=== PATIENT | male | born 1960 | race Caucasian/White ===

== ENCOUNTER 2017-07-20 17:25 | Emergency (ER) | payer MEDICARE, MEDICAID ==
[~2017-07-20 17:25] MED LIST: Sodium Chloride 0.9% 1,000 ML BAG ONE; Sodium Chloride 0.9% 100 ML BAG ONE
[2017-07-20] MEDS ORDERED: Insulin Regular 300 UNITS/3 ML VIAL ONE (18:00)
[2017-07-20 18:46] LABS: ALT (SGPT) 20 U/L (8-55); AST (SGOT) 21 U/L (5-34); Albumin 3.3 g/dL (3.5-5.0); Alkaline Phosphatase 91 U/L (40-150); Anion Gap 21 mmol/L (10-20); BUN (Urea Nitrogen) 27 mg/dL (8.4-25.7); Bilirubin, Total Less than 0.3 mg/dL (0.2-1.2); Calc. Creatinine Clearance 0 mL/min (70-130); Calcium 8.9 mg/dL (7.8-10.44); Carbon Dioxide 18 mmol/L (22-29); Chloride 103 mmol/L (98-107); Estimated GFR-MDRD Greater than 90; Globulin 4.4 g/dL (2.4-3.5); Glucose 375 mg/dL (70-105); Potassium 5.1 mmol/L (3.5-5.1); Protein, Total 7.7 g/dL (6.0-8.3); Sodium 137 mmol/L (136-145)
[2017-07-20 19:05] LABS: Bilirubin Negative (Negative); Blood, Urine Moderate (Negative); Clarity Cloudy (Clear); Glucose, Urine (Dipstick) >=1000 mg/dL (Negative); Leukocyte Small (Negative); Nitrite Negative (Negative); Protein, Urine (Dipstick) 100 mg/dL (Neg-Trace); Specific Gravity, Urine 1.015 (1.005-1.030); Urobilinogen 0.2 mg/dL (0.2-1.0); pH, Urine 7.5 (5.0-9.0)
[2017-07-20 19:06] LABS: Bacteria/HPF 4+ HPF (None Seen); Crystals/HPF 1+ TRIPLE PHOS HPF (Negative); Squamous Epithelial None Seen HPF (0-3)
[2017-07-20 19:17] LABS: Band 9 % (5-11); Eosinophils 1 % (0-10); MDiff Complete? YES; Mean Corpuscular HGB CONC 31.9 g/dL (32.0-36.0); Mean Corpuscular Hemoglobin 28.5 pg (27.0-31.0); Mean Corpuscular Volume 89.3 fl (80.0-94.0); Mean Platelet Volume 8.3 fL (7.4-10.4); Monocytes 4 % (0-10); Neutrophil 80 % (42-75); PLT Morphology Comment Appears Adequate; Platelet Count 199 thou/uL (130-400); RBC Distribution Width 14.2 % (11.5-14.5); Reactive Lymphocytes 6 % (0-10); Red Blood Cell (RBC) Count 4.57 mill/uL (4.70-6.10)
[2017-07-20] MEDS ORDERED: cefTRIAXone\\ROCEPHIN 2 GM VIAL ONE (21:49)
[2017-07-20] MEDS ORDERED: metroNIDAZOLE 500 MG/100 ML BAG ONE (22:08)
== END 2017-07-20 22:54 | disposition short-term general hospital (02) ==
LOC: MADERS 17:25
DX: A41.9 Sepsis, unspecified organism (principal); E11.65 Type 2 diabetes mellitus with hyperglycemia; L89.124 Pressure ulcer of left upper back, stage 4; L89.324 Pressure ulcer of left buttock, stage 4; L89.312 Pressure ulcer of right buttock, stage 2; N39.0 Urinary tract infection, site not specified; E03.9 Hypothyroidism, unspecified; G82.50 Quadriplegia, unspecified; E11.40 Type 2 diabetes mellitus with diabetic neuropathy, unspecified; E78.5 Hyperlipidemia, unspecified; I10 Essential (primary) hypertension; I42.9 Cardiomyopathy, unspecified; I49.9 Cardiac arrhythmia, unspecified; F31.9 Bipolar disorder, unspecified; F41.9 Anxiety disorder, unspecified; F22 Delusional disorders; E66.01 Morbid (severe) obesity due to excess calories; Z79.84 Long term (current) use of oral hypoglycemic drugs; Z79.899 Other long term (current) drug therapy
CPT/HCPCS: 36415; 36416; 80053; 81003; 81015; 83605; 85025; 87040; 87070; 87077; 87149; 87186; 87205; 93005; 96361; 96365; 96367; 96368; J0696; J1815; J3370; J7050

== ENCOUNTER 2018-06-20 00:04 | Emergency (ER) | payer MEDICARE, OTHER ==
[2018-06-20 01:19] LABS: #Basophils 0.1 thou/uL (0.0-0.2); #Eosinphils 0.3 thou/uL (0.0-0.7); #Lymphocytes 4.5 thou/uL (1.20-3.40); #Monocytes 0.6 thou/uL (0.11-0.59); %Basophils 1.2 % (0.0-1.0); %Eosinophils 2.8 % (0.0-10.0); %Lymphocytes 42.9 % (21.0-51.0); %Monocytes 5.5 % (0.0-10.0); %Neutrophils 47.6 % (42.0-75.0); Hemoglobin 11.7 g/dL (14.0-18.0); Mean Corpuscular HGB CONC 31.9 g/dL (32.0-36.0); Mean Corpuscular Hemoglobin 26.8 pg (27.0-31.0); Mean Platelet Volume 7.9 fL (7.4-10.4); Platelet Count 376 thou/uL (130-400); RBC Distribution Width 15.6 % (11.5-14.5); Red Blood Cell (RBC) Count 4.35 mill/uL (4.70-6.10); White Blood Cell (WBC) Count 10.6 thou/uL (4.8-10.8)
[2018-06-20] MEDS ORDERED: Piperacillin/Tazobactam 4.5 GM VIAL ONE (01:30)
[2018-06-20 01:35] LABS: INR-International Normal Ratio 1.1; Prothrombin Time 14.2 SEC (12.0-14.7)
[2018-06-20 01:36] LABS: PTT 34.5 SEC (22.9-36.1)
[2018-06-20 01:43] LABS: ALT (SGPT) 8 U/L (8-55); AST (SGOT) 11 U/L (5-34); Albumin 3.5 g/dL (3.5-5.0); Alkaline Phosphatase 143 U/L (40-150); Anion Gap 20 mmol/L (10-20); BUN (Urea Nitrogen) 22 mg/dL (8.4-25.7); Bilirubin, Total 0.2 mg/dL (0.2-1.2); Calc. Creatinine Clearance 0 mL/min (70-130); Calcium 9.6 mg/dL (7.8-10.44); Carbon Dioxide 19 mmol/L (22-29); Chloride 103 mmol/L (98-107); Estimated GFR-MDRD Greater than 90; Globulin 5.4 g/dL (2.4-3.5); Glucose 152 mg/dL (70-105); Lipase 65 U/L (8-78); Potassium 4.3 mmol/L (3.5-5.1); Protein, Total 8.9 g/dL (6.0-8.3); Sodium 138 mmol/L (136-145)
[2018-06-20 02:11] LABS: Bilirubin Small (Negative); Blood, Urine Small (Negative); Clarity Turbid (Clear); Glucose, Urine (Dipstick) Negative (Negative); Leukocyte Large (Negative); Nitrite Negative (Negative); Protein, Urine (Dipstick) > or equal to 300 mg/dL (Neg-Trace); Specific Gravity, Urine 1.025 (1.005-1.030); Urobilinogen 0.2 mg/dL (0.2-1.0); pH, Urine 5.5 (5.0-9.0)
[2018-06-20] MEDS ORDERED: Sterile Water 100 ML ONE (02:17)
[2018-06-20 02:23] LABS: Bacteria/HPF 4+ HPF (None Seen); Other Casts/LPF 7-10 MIXED CASTS LPF (0-3 Hyaline); Squamous Epithelial 0-3 HPF (0-3); Transitional Epithelial 0-3 HPF (0-3); Yeast-All Forms Rare HPF (None Seen)
[2018-06-20] MEDS ORDERED: Norepinephrine 4 MG/4 ML VIAL ONE ×2 (02:41→06:41)
[2018-06-20 03:04] LABS: CKMB 0.7 ng/mL (0-6.6); Troponin I 0.071 ng/mL (< 0.028)
[2018-06-20] MEDS ORDERED: Sodium Chloride 0.9% 100 ML BAG ONE (06:41)
[2018-06-20] MEDS ORDERED: Sodium Chloride 0.9% 1,000 ML BAG ONE (06:41)
[2018-06-20] MEDS ORDERED: Sodium Chloride Irrig Solution 250 ML BOT ONE (06:41)
--- NOTE | 2018-06-20 08:23 | RAD ---
CHEST ONE VIEW: HISTORY: Chest pain. COMPARISON: 11/20/2017 FINDINGS: The cardiac silhouette is magnified by projection. The pulmonary vasculature remains at the upper li mits of normal. The mediastinum is midline. No lobar consolidation or evidence of pneumothorax. Po stoperative changes of the cervical spine. IMPRESSION: Chronic diffuse interstitial prominence, stable. POS: [facility]
== END 2018-06-20 03:20 | disposition short-term general hospital (02) ==
LOC: MADERS 00:04
DX: A41.9 Sepsis, unspecified organism (principal); L03.116 Cellulitis of left lower limb; L03.115 Cellulitis of right lower limb; E11.40 Type 2 diabetes mellitus with diabetic neuropathy, unspecified; G62.9 Polyneuropathy, unspecified; E03.9 Hypothyroidism, unspecified; E78.5 Hyperlipidemia, unspecified; E66.9 Obesity, unspecified; F31.9 Bipolar disorder, unspecified; Z79.899 Other long term (current) drug therapy; Z79.891 Long term (current) use of opiate analgesic
CPT/HCPCS: 36415; 36556; 71045; 80053; 81003; 81015; 82550; 82553; 83605; 83690; 84484; 85025; 85610; 85652; 85730; 87040; 87086; 87186; 93005; 94760; 96365; 96367; 96368; J2543; J3370; J7050; J7070

== ENCOUNTER 2018-09-16 09:41 | Emergency (ER) | payer MEDICARE, MEDICAID | END 2018-09-16 12:36 | disposition home or self-care (01) | LOC: MADERS 09:41 | DX: L03.115 Cellulitis of right lower limb (principal); E11.40 Type 2 diabetes mellitus with diabetic neuropathy, unspecified; E03.9 Hypothyroidism, unspecified; E78.5 Hyperlipidemia, unspecified; I10 Essential (primary) hypertension; E66.9 Obesity, unspecified; F41.9 Anxiety disorder, unspecified; F31.9 Bipolar disorder, unspecified | CPT/HCPCS: 99284 ==

== ENCOUNTER 2018-11-19 10:17 | Outpatient (CLI) | payer MEDICARE, MEDICAID ==
--- NOTE | 2018-11-19 12:39 | RAD ---
RADIOGRAPH CHEST 1 VIEW: Supine HISTORY: A 57-year-old male with chest wound. FINDINGS: There is no air space density or pulmonary edema. The lateral costophrenic angles are sharp. Supine positioning makes this study insensitive for pneumothorax detection. IMPRESSION: No acute pulmonary findings. halina [] POS: [facility]
--- NOTE | 2018-11-19 12:42 | RAD ---
THREE VIEWS RIGHT RIBS: Date: 11-19-18 Comparison: None. History: Lower thoracic posterior wound, pain. FINDINGS: Incompletely imaged cervical spine hardware is present. There is degenerative change involving the AC joint and the glenohumeral joint on the right. There is mild nonspecific increased linear density within the right lung, similar when compared to 06-20-18 exam. No displaced rib fracture is seen. IMPRESSION: No acute osseous abnormality. Given patient's history of wound, CT examination is suggested for furth er assessment. POS: [facility]
== END 2018-11-19 10:18 | disposition home or self-care (01) ==
LOC: MADRAD 10:17
PROVIDERS: ATTEND Family Medicine
DX: G82.50 Quadriplegia, unspecified (principal); I73.9 Peripheral vascular disease, unspecified; M79.2 Neuralgia and neuritis, unspecified; S21.101D Unspecified open wound of right front wall of thorax without penetration into thoracic cavity, subsequent encounter; I10 Essential (primary) hypertension
CPT/HCPCS: 71045

== ENCOUNTER 2018-12-04 13:59 | Inpatient (IN) | payer MEDICARE, MEDICAID ==
[2018-12-04] MEDS ORDERED: ALPRAZolam 0.25 MG TAB PO PRN (18:09)
[2018-12-04] MEDS ORDERED: diphenhydrAMINE 25 MG CAP PO PRN (18:09)
[2018-12-04] MEDS ORDERED: Dextrose 50% Abboject 50 ML SYRINGE SLOW IVP PRN (18:20)
[2018-12-04] MEDS ORDERED: Dextrose 5% in Water 1,000 ML IV PRN (18:20)
[2018-12-04] MEDS ORDERED: [UNRECOGNIZED DRUG - OTHER] PO SCH (21:00)
[2018-12-04] MEDS ORDERED: AMINO ACIDS PO SCH (21:00)
[2018-12-04] MEDS ORDERED: PROTEIN HYDROLYS PO SCH (21:00)
[2018-12-04] MEDS ORDERED: Pregabalin 100 MG CAP PO SCH (21:00)
[2018-12-04] MEDS: busPIRone HCl 5 MG TAB PO SCH (21:27)
[2018-12-04] MEDS: Citalopram 20 MG TAB PO SCH (21:28)
[2018-12-04] MEDS: Docusate 100 MG CAP PO SCH (21:28)
[2018-12-04] MEDS: levETIRAcetam 500 MG TAB PO SCH (21:29)
[2018-12-04] MEDS: HumaLOG 300 UNITS/3 ML VIAL SC PRN (21:42)
[2018-12-04] MEDS ORDERED: Pregabalin 50 MG CAP PO SCH (21:45)
[2018-12-04 23:37] LABS: Vancomycin, Trough 27.2 ug/mL
[2018-12-04] MEDS ORDERED: Vancomycin HCl 1 GM in Sodium Chloride 0.9% 250 ML 250 ML IVPB SCH (23:59)
[2018-12-05] MEDS ORDERED: Vancomycin HCl 1 GM in Sodium Chloride 0.9% 250 ML 250 ML IVPB SCH (01:00)
[2018-12-05] MEDS: COLESEVELAM HCL 3.75 GM PO SCH ×3 (02:56→20:38)
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
[2018-12-05 05:01] LABS: #Eosinphils 0.4 thou/uL (0.0-0.7); #Lymphocytes 3.4 thou/uL (1.20-3.40); #Monocytes 0.6 thou/uL (0.11-0.59); #Neutrophils 3.4 thou/uL (1.40-6.50); %Basophils 0.6 % (0.0-1.0); %Eosinophils 4.7 % (0.0-10.0); %Lymphocytes 43.9 % (21.0-51.0); %Neutrophils 42.8 % (42.0-75.0); Hemoglobin 8.2 g/dL (14.0-18.0); Mean Corpuscular HGB CONC 31.8 g/dL (32.0-36.0); Mean Corpuscular Hemoglobin 27.2 pg (27.0-31.0); Mean Corpuscular Volume 85.5 fL (78.0-98.0); Mean Platelet Volume 6.6 fL (7.4-10.4); Platelet Count 376 thou/uL (130-400); RBC Distribution Width 13.7 % (11.5-14.5); Red Blood Cell (RBC) Count 3.02 mill/uL (4.70-6.10); White Blood Cell (WBC) Count 7.8 thou/uL (4.8-10.8)
[2018-12-05] MEDS: Levothyroxine Sodium 75 MCG TAB PO SCH (05:05)
[2018-12-05 05:17] LABS: Anion Gap 12 mmol/L (10-20); BUN (Urea Nitrogen) 9 mg/dL (8.4-25.7); Calc. Creatinine Clearance 203 mL/min (70-130); Calcium 9.1 mg/dL (7.8-10.44); Carbon Dioxide 29 mmol/L (22-29); Chloride 105 mmol/L (98-107); Estimated GFR-MDRD Greater than 90; Glucose 136 mg/dL (70-105); Potassium 4.1 mmol/L (3.5-5.1); Sodium 142 mmol/L (136-145)
[2018-12-05] MEDS: cefTRIAXone\\ROCEPHIN 2 GM VIAL IVPB SCH (08:24)
[2018-12-05] MEDS: Saccharomyces boulardii 250 MG CAP PO SCH (08:30)
[2018-12-05] MEDS: Zinc Sulfate 220 MG CAP PO SCH (08:30)
[2018-12-05] MEDS: Polyethylene Glycol 3350 17 GM Packet PO SCH (08:30)
[2018-12-05] MEDS: Docusate 100 MG CAP PO SCH ×2 (08:30→20:35)
[2018-12-05] MEDS: Enoxaparin Sodium 40 MG/0.4 ML SYRINGE SC SCH (08:30)
[2018-12-05] MEDS: levETIRAcetam 500 MG TAB PO SCH ×2 (08:31→20:33)
[2018-12-05] MEDS: Pregabalin 50 MG CAP PO SCH ×2 (08:31→20:29)
[2018-12-05] MEDS: Amlodipine 5 MG TAB PO SCH (08:31)
[2018-12-05] MEDS: Furosemide 20 MG TAB PO SCH (08:35)
[2018-12-05] MEDS: metFORMIN 500 MG TAB PO SCH ×2 (08:35→17:11)
[2018-12-05] MEDS: Gemfibrozil 600 MG TAB PO SCH ×2 (08:36→17:11)
[2018-12-05] MEDS: busPIRone HCl 5 MG TAB PO SCH ×2 (08:38→20:32)
[2018-12-05] MEDS: Lantus 1000 UNITS/10 ML VIAL SC SCH (08:41)
[2018-12-05] MEDS ORDERED: Sodium Chloride Irrig Solution 250 ML BOT ONE (09:35)
[2018-12-05] MEDS: HumaLOG 300 UNITS/3 ML VIAL SC PRN ×2 (11:57→21:24)
[2018-12-05] MEDS: Vancomycin HCl 750 MG in Sodium Chloride 0.9% 250 ML 250 ML IVPB SCH ×3 (11:57→23:22)
[2018-12-05] MEDS: Citalopram 20 MG TAB PO SCH (20:29)
[2018-12-06] MEDS: Vancomycin HCl 750 MG in Sodium Chloride 0.9% 250 ML 250 ML IVPB SCH ×3 (00:19→12:00)
[2018-12-06] MEDS: Levothyroxine Sodium 75 MCG TAB PO SCH (05:34)
[2018-12-06] MEDS: cefTRIAXone\\ROCEPHIN 2 GM VIAL IVPB SCH (07:44)
[2018-12-06] MEDS: Gemfibrozil 600 MG TAB PO SCH ×2 (07:52→17:18)
[2018-12-06] MEDS: metFORMIN 500 MG TAB PO SCH ×2 (07:52→17:18)
[2018-12-06] MEDS: Enoxaparin Sodium 40 MG/0.4 ML SYRINGE SC SCH (09:36)
[2018-12-06] MEDS: Polyethylene Glycol 3350 17 GM Packet PO SCH (09:36)
[2018-12-06] MEDS: Zinc Sulfate 220 MG CAP PO SCH (09:37)
[2018-12-06] MEDS: busPIRone HCl 5 MG TAB PO SCH ×2 (09:37→21:27)
[2018-12-06] MEDS: levETIRAcetam 500 MG TAB PO SCH ×2 (09:37→21:27)
[2018-12-06] MEDS: Pregabalin 50 MG CAP PO SCH ×2 (09:39→21:22)
[2018-12-06] MEDS: Furosemide 20 MG TAB PO SCH (09:41)
[2018-12-06] MEDS: Lantus 1000 UNITS/10 ML VIAL SC SCH (09:41)
[2018-12-06] MEDS: COLESEVELAM HCL 3.75 GM PO SCH ×2 (09:42→21:28)
[2018-12-06] MEDS: Saccharomyces boulardii 250 MG CAP PO SCH (09:44)
[2018-12-06] MEDS: HumaLOG 300 UNITS/3 ML VIAL SC PRN ×4 (10:07→21:33)
[2018-12-06] MEDS: Docusate 100 MG CAP PO SCH ×2 (10:11→21:26)
[2018-12-06] MEDS: Amlodipine 5 MG TAB PO SCH (10:11)
[2018-12-06] MEDS ORDERED: Lantiseptic Ointment 130 GM JAR TOP PRN (19:41)
[2018-12-06] MEDS: Citalopram 20 MG TAB PO SCH (21:28)
[2018-12-06 23:20] LABS: Vancomycin, Trough 17.7 ug/mL
[2018-12-07] MEDS: Vancomycin HCl 750 MG in Sodium Chloride 0.9% 250 ML 250 ML IVPB SCH ×6 (00:04→23:41)
[2018-12-07] MEDS: Levothyroxine Sodium 75 MCG TAB PO SCH (05:29)
[2018-12-07] MEDS: Pregabalin 50 MG CAP PO SCH ×2 (09:36→20:40)
[2018-12-07] MEDS: cefTRIAXone\\ROCEPHIN 2 GM VIAL IVPB SCH (09:36)
[2018-12-07] MEDS: Polyethylene Glycol 3350 17 GM Packet PO SCH (09:36)
[2018-12-07] MEDS: Zinc Sulfate 220 MG CAP PO SCH (09:37)
[2018-12-07] MEDS: Saccharomyces boulardii 250 MG CAP PO SCH (09:37)
[2018-12-07] MEDS: Furosemide 20 MG TAB PO SCH (09:38)
[2018-12-07] MEDS: metFORMIN 500 MG TAB PO SCH ×2 (09:38→17:45)
[2018-12-07] MEDS: Gemfibrozil 600 MG TAB PO SCH ×2 (09:38→17:45)
[2018-12-07] MEDS: Amlodipine 5 MG TAB PO SCH (09:38)
[2018-12-07] MEDS: Docusate 100 MG CAP PO SCH ×2 (09:38→20:38)
[2018-12-07] MEDS: busPIRone HCl 5 MG TAB PO SCH ×2 (09:40→20:37)
[2018-12-07] MEDS: Enoxaparin Sodium 40 MG/0.4 ML SYRINGE SC SCH (09:41)
[2018-12-07] MEDS: Lantus 1000 UNITS/10 ML VIAL SC SCH (09:41)
[2018-12-07] MEDS: levETIRAcetam 500 MG TAB PO SCH ×2 (09:41→20:38)
[2018-12-07] MEDS: HumaLOG 300 UNITS/3 ML VIAL SC PRN ×4 (09:43→21:38)
[2018-12-07] MEDS: COLESEVELAM HCL 3.75 GM PO SCH ×2 (09:52→20:45)
[2018-12-07] MEDS ORDERED: Sodium Chloride Irrig Solution 250 ML BOT ONE (13:07)
[2018-12-07] MEDS: Citalopram 20 MG TAB PO SCH (20:40)
[2018-12-08] MEDS: traMADol HCl 50 MG TAB PO PRN (03:07)
[2018-12-08] MEDS: Levothyroxine Sodium 75 MCG TAB PO SCH (05:12)
[2018-12-08] MEDS: Gemfibrozil 600 MG TAB PO SCH ×2 (07:23→17:01)
[2018-12-08] MEDS: cefTRIAXone\\ROCEPHIN 2 GM VIAL IVPB SCH (07:23)
[2018-12-08] MEDS: metFORMIN 500 MG TAB PO SCH ×2 (07:23→17:01)
[2018-12-08] MEDS: Enoxaparin Sodium 40 MG/0.4 ML SYRINGE SC SCH (08:09)
[2018-12-08] MEDS: busPIRone HCl 5 MG TAB PO SCH ×2 (08:13→21:34)
[2018-12-08] MEDS: Polyethylene Glycol 3350 17 GM Packet PO SCH (08:13)
[2018-12-08] MEDS: Docusate 100 MG CAP PO SCH ×2 (08:15→21:34)
[2018-12-08] MEDS: Furosemide 20 MG TAB PO SCH (08:15)
[2018-12-08] MEDS: Zinc Sulfate 220 MG CAP PO SCH (08:15)
[2018-12-08] MEDS: levETIRAcetam 500 MG TAB PO SCH ×2 (08:15→21:34)
[2018-12-08] MEDS: Amlodipine 5 MG TAB PO SCH (08:22)
[2018-12-08] MEDS: Saccharomyces boulardii 250 MG CAP PO SCH (08:22)
[2018-12-08] MEDS: Lantus 1000 UNITS/10 ML VIAL SC SCH (08:23)
[2018-12-08] MEDS: COLESEVELAM HCL 3.75 GM PO SCH ×2 (08:27→21:41)
[2018-12-08] MEDS: Pregabalin 50 MG CAP PO SCH ×2 (08:31→21:39)
[2018-12-08] MEDS: HumaLOG 300 UNITS/3 ML VIAL SC PRN ×3 (08:33→21:44)
[2018-12-08 11:19] LABS: Vancomycin, Trough 21.3 ug/mL
[2018-12-08] MEDS: Vancomycin HCl 750 MG in Sodium Chloride 0.9% 250 ML 250 ML IVPB SCH (12:47)
[2018-12-08] MEDS: Vancomycin HCl 500 MG in Sodium Chloride 0.9% 100 ML IVPB SCH (12:48)
[2018-12-08] MEDS: Citalopram 20 MG TAB PO SCH (21:34)
[2018-12-09] MEDS: Vancomycin HCl 500 MG in Sodium Chloride 0.9% 100 ML IVPB SCH ×2 (00:20→11:30)
[2018-12-09] MEDS: Vancomycin HCl 750 MG in Sodium Chloride 0.9% 250 ML 250 ML IVPB SCH ×2 (00:20→11:30)
[2018-12-09 00:47] LABS: Vancomycin, Trough 17.9 ug/mL
[2018-12-09] MEDS: Levothyroxine Sodium 75 MCG TAB PO SCH (05:12)
[2018-12-09] MEDS: cefTRIAXone\\ROCEPHIN 2 GM VIAL IVPB SCH (07:45)
[2018-12-09] MEDS: Pregabalin 50 MG CAP PO SCH ×2 (07:47→22:44)
[2018-12-09] MEDS: Enoxaparin Sodium 40 MG/0.4 ML SYRINGE SC SCH (07:48)
[2018-12-09] MEDS: Polyethylene Glycol 3350 17 GM Packet PO SCH (07:49)
[2018-12-09] MEDS: busPIRone HCl 5 MG TAB PO SCH ×2 (07:50→22:39)
[2018-12-09] MEDS: metFORMIN 500 MG TAB PO SCH ×2 (07:50→17:18)
[2018-12-09] MEDS: Zinc Sulfate 220 MG CAP PO SCH (07:50)
[2018-12-09] MEDS: Docusate 100 MG CAP PO SCH ×2 (07:51→22:40)
[2018-12-09] MEDS: Gemfibrozil 600 MG TAB PO SCH ×2 (07:51→17:18)
[2018-12-09] MEDS: levETIRAcetam 500 MG TAB PO SCH ×2 (07:51→22:40)
[2018-12-09] MEDS: Saccharomyces boulardii 250 MG CAP PO SCH (07:51)
[2018-12-09] MEDS: Amlodipine 5 MG TAB PO SCH (07:52)
[2018-12-09] MEDS: Lantus 1000 UNITS/10 ML VIAL SC SCH (07:52)
[2018-12-09] MEDS: Furosemide 20 MG TAB PO SCH (07:52)
[2018-12-09] MEDS: COLESEVELAM HCL 3.75 GM PO SCH ×2 (07:53→22:41)
[2018-12-09] MEDS: HumaLOG 300 UNITS/3 ML VIAL SC PRN ×4 (07:56→22:44)
[2018-12-09] MEDS: Citalopram 20 MG TAB PO SCH (22:39)
[2018-12-10] MEDS ORDERED: Activase 2 MG VIAL CATH SCH (01:00)
[2018-12-10] MEDS ORDERED: Sterile Water 10 ML VIAL IVP SCH (01:00)
[2018-12-10] MEDS: Vancomycin HCl 750 MG in Sodium Chloride 0.9% 250 ML 250 ML IVPB SCH ×3 (02:17→14:34)
[2018-12-10] MEDS: Vancomycin HCl 500 MG in Sodium Chloride 0.9% 100 ML IVPB SCH ×3 (02:18→14:34)
[2018-12-10] MEDS: Levothyroxine Sodium 75 MCG TAB PO SCH (05:48)
[2018-12-10] MEDS: Polyethylene Glycol 3350 17 GM Packet PO SCH (08:54)
[2018-12-10] MEDS: COLESEVELAM HCL 3.75 GM PO SCH ×2 (08:55→22:09)
[2018-12-10] MEDS: Enoxaparin Sodium 40 MG/0.4 ML SYRINGE SC SCH (08:55)
[2018-12-10] MEDS: metFORMIN 500 MG TAB PO SCH ×2 (08:55→16:57)
[2018-12-10] MEDS: Amlodipine 5 MG TAB PO SCH (08:57)
[2018-12-10] MEDS: Gemfibrozil 600 MG TAB PO SCH ×2 (08:57→16:57)
[2018-12-10] MEDS: Zinc Sulfate 220 MG CAP PO SCH (08:57)
[2018-12-10] MEDS: Furosemide 20 MG TAB PO SCH (08:57)
[2018-12-10] MEDS: busPIRone HCl 5 MG TAB PO SCH ×2 (08:57→21:49)
[2018-12-10] MEDS: levETIRAcetam 500 MG TAB PO SCH ×2 (08:58→21:49)
[2018-12-10] MEDS: Lantus 1000 UNITS/10 ML VIAL SC SCH (08:58)
[2018-12-10] MEDS: Saccharomyces boulardii 250 MG CAP PO SCH (08:58)
[2018-12-10] MEDS: Pregabalin 50 MG CAP PO SCH (09:01)
[2018-12-10] MEDS: HumaLOG 300 UNITS/3 ML VIAL SC PRN ×3 (09:01→16:58)
[2018-12-10] MEDS: cefTRIAXone\\ROCEPHIN 2 GM VIAL IVPB SCH (09:02)
[2018-12-10] MEDS: Docusate 100 MG CAP PO SCH ×2 (09:03→21:48)
[2018-12-10 13:34] LABS: Vancomycin, Trough 18.6 ug/mL
[2018-12-10] MEDS: Pregabalin 75 MG CAP PO SCH (21:46)
[2018-12-10] MEDS: Citalopram 20 MG TAB PO SCH (21:49)
[2018-12-10] MEDS: traMADol HCl 50 MG TAB PO PRN (22:00)
[2018-12-11] MEDS: Vancomycin HCl 750 MG in Sodium Chloride 0.9% 250 ML 250 ML IVPB SCH ×2 (02:07→14:18)
[2018-12-11] MEDS: Vancomycin HCl 500 MG in Sodium Chloride 0.9% 100 ML IVPB SCH ×2 (02:09→14:18)
[2018-12-11] MEDS: Levothyroxine Sodium 75 MCG TAB PO SCH (05:12)
[2018-12-11] MEDS: Polyethylene Glycol 3350 17 GM Packet PO SCH (08:45)
[2018-12-11] MEDS: COLESEVELAM HCL 3.75 GM PO SCH ×2 (08:45→20:49)
[2018-12-11] MEDS: busPIRone HCl 5 MG TAB PO SCH ×2 (08:53→20:46)
[2018-12-11] MEDS: Pregabalin 75 MG CAP PO SCH ×2 (08:53→20:43)
[2018-12-11] MEDS: Zinc Sulfate 220 MG CAP PO SCH (08:53)
[2018-12-11] MEDS: levETIRAcetam 500 MG TAB PO SCH ×2 (08:54→20:42)
[2018-12-11] MEDS: Docusate 100 MG CAP PO SCH ×2 (08:54→20:49)
[2018-12-11] MEDS: Furosemide 20 MG TAB PO SCH (08:54)
[2018-12-11] MEDS: Saccharomyces boulardii 250 MG CAP PO SCH (08:54)
[2018-12-11] MEDS: metFORMIN 500 MG TAB PO SCH ×2 (08:54→16:36)
[2018-12-11] MEDS: Gemfibrozil 600 MG TAB PO SCH ×2 (08:54→16:36)
[2018-12-11] MEDS: Lantus 1000 UNITS/10 ML VIAL SC SCH (08:55)
[2018-12-11] MEDS: cefTRIAXone\\ROCEPHIN 2 GM VIAL IVPB SCH (08:55)
[2018-12-11] MEDS: Amlodipine 5 MG TAB PO SCH (08:55)
[2018-12-11] MEDS: Enoxaparin Sodium 40 MG/0.4 ML SYRINGE SC SCH (09:05)
[2018-12-11] MEDS: HumaLOG 300 UNITS/3 ML VIAL SC PRN ×3 (12:05→22:25)
[2018-12-11] MEDS: Citalopram 20 MG TAB PO SCH (20:46)
[2018-12-12] MEDS: Vancomycin HCl 750 MG in Sodium Chloride 0.9% 250 ML 250 ML IVPB SCH ×2 (02:14→16:12)
[2018-12-12] MEDS: Vancomycin HCl 500 MG in Sodium Chloride 0.9% 100 ML IVPB SCH ×2 (02:15→16:11)
[2018-12-12] MEDS: Levothyroxine Sodium 75 MCG TAB PO SCH (05:42)
[2018-12-12] MEDS: cefTRIAXone\\ROCEPHIN 2 GM VIAL IVPB SCH (08:07)
[2018-12-12] MEDS: Gemfibrozil 600 MG TAB PO SCH ×2 (08:12→17:08)
[2018-12-12] MEDS: Amlodipine 5 MG TAB PO SCH (08:12)
[2018-12-12] MEDS: metFORMIN 500 MG TAB PO SCH ×2 (08:12→17:09)
[2018-12-12] MEDS: Docusate 100 MG CAP PO SCH ×2 (08:13→21:20)
[2018-12-12] MEDS: busPIRone HCl 5 MG TAB PO SCH ×2 (08:13→21:21)
[2018-12-12] MEDS: Enoxaparin Sodium 40 MG/0.4 ML SYRINGE SC SCH (08:14)
[2018-12-12] MEDS: Furosemide 20 MG TAB PO SCH (08:14)
[2018-12-12] MEDS: Lantus 1000 UNITS/10 ML VIAL SC SCH (08:17)
[2018-12-12] MEDS: levETIRAcetam 500 MG TAB PO SCH ×2 (08:18→21:15)
[2018-12-12] MEDS: COLESEVELAM HCL 3.75 GM PO SCH ×2 (08:19→21:23)
[2018-12-12] MEDS: Polyethylene Glycol 3350 17 GM Packet PO SCH (08:19)
[2018-12-12] MEDS: Pregabalin 75 MG CAP PO SCH ×2 (08:20→21:12)
[2018-12-12] MEDS: Saccharomyces boulardii 250 MG CAP PO SCH (08:22)
[2018-12-12] MEDS: Zinc Sulfate 220 MG CAP PO SCH (08:23)
[2018-12-12] MEDS: HumaLOG 300 UNITS/3 ML VIAL SC PRN ×3 (08:23→22:27)
[2018-12-12 15:02] LABS: Vancomycin, Trough 15.1 ug/mL
[2018-12-12] MEDS: Citalopram 20 MG TAB PO SCH (21:20)
[2018-12-13] MEDS: Vancomycin HCl 750 MG in Sodium Chloride 0.9% 250 ML 250 ML IVPB SCH ×2 (02:55→14:34)
[2018-12-13] MEDS: Vancomycin HCl 500 MG in Sodium Chloride 0.9% 100 ML IVPB SCH ×2 (02:55→14:35)
[2018-12-13] MEDS: Levothyroxine Sodium 75 MCG TAB PO SCH (04:27)
[2018-12-13] MEDS: traMADol HCl 50 MG TAB PO PRN (04:28)
[2018-12-13 07:12] LABS: #Basophils 0.1 thou/uL (0.0-0.2); #Eosinphils 0.4 thou/uL (0.0-0.7); #Lymphocytes 3.4 thou/uL (1.20-3.40); #Monocytes 0.7 thou/uL (0.11-0.59); #Neutrophils 2.4 thou/uL (1.40-6.50); %Basophils 0.9 % (0.0-1.0); %Eosinophils 5.4 % (0.0-10.0); %Lymphocytes 49.3 % (21.0-51.0); %Monocytes 9.5 % (0.0-10.0); %Neutrophils 34.9 % (42.0-75.0); Hemoglobin 9.1 g/dL (14.0-18.0); Mean Corpuscular HGB CONC 30.1 g/dL (32.0-36.0); Mean Corpuscular Hemoglobin 26.2 pg (27.0-31.0); Mean Corpuscular Volume 87.2 fL (78.0-98.0); Mean Platelet Volume 6.6 fL (7.4-10.4); Platelet Count 335 thou/uL (130-400); RBC Distribution Width 15.1 % (11.5-14.5); Red Blood Cell (RBC) Count 3.46 mill/uL (4.70-6.10); White Blood Cell (WBC) Count 6.9 thou/uL (4.8-10.8)
[2018-12-13 07:23] LABS: Anion Gap 17 mmol/L (10-20); BUN (Urea Nitrogen) 19 mg/dL (8.4-25.7); Calc. Creatinine Clearance 184 mL/min (70-130); Calcium 9.3 mg/dL (7.8-10.44); Carbon Dioxide 24 mmol/L (22-29); Chloride 105 mmol/L (98-107); Estimated GFR-MDRD Greater than 90; Glucose 158 mg/dL (70-105); Potassium 4.5 mmol/L (3.5-5.1); Sodium 141 mmol/L (136-145)
[2018-12-13] MEDS: Lantus 1000 UNITS/10 ML VIAL SC SCH (08:10)
[2018-12-13] MEDS: Enoxaparin Sodium 40 MG/0.4 ML SYRINGE SC SCH (08:11)
[2018-12-13] MEDS: Polyethylene Glycol 3350 17 GM Packet PO SCH (08:11)
[2018-12-13] MEDS: cefTRIAXone\\ROCEPHIN 2 GM VIAL IVPB SCH (08:12)
[2018-12-13] MEDS: Zinc Sulfate 220 MG CAP PO SCH (08:13)
[2018-12-13] MEDS: metFORMIN 500 MG TAB PO SCH ×2 (08:13→17:19)
[2018-12-13] MEDS: levETIRAcetam 500 MG TAB PO SCH ×2 (08:14→20:11)
[2018-12-13] MEDS: Gemfibrozil 600 MG TAB PO SCH ×2 (08:16→17:00)
[2018-12-13] MEDS: Pregabalin 75 MG CAP PO SCH ×2 (08:16→20:07)
[2018-12-13] MEDS: Docusate 100 MG CAP PO SCH ×2 (08:16→20:12)
[2018-12-13] MEDS: Furosemide 20 MG TAB PO SCH (08:16)
[2018-12-13] MEDS: Amlodipine 5 MG TAB PO SCH (08:16)
[2018-12-13] MEDS: COLESEVELAM HCL 3.75 GM PO SCH ×2 (08:18→20:13)
[2018-12-13] MEDS: busPIRone HCl 5 MG TAB PO SCH ×2 (08:23→20:11)
[2018-12-13] MEDS: Saccharomyces boulardii 250 MG CAP PO SCH (08:24)
[2018-12-13] MEDS: HumaLOG 300 UNITS/3 ML VIAL SC PRN ×3 (12:24→23:36)
[2018-12-13] MEDS: Citalopram 20 MG TAB PO SCH (20:11)
[2018-12-14 01:19] LABS: Vancomycin, Trough 19.8 ug/mL
[2018-12-14] MEDS: Vancomycin HCl 500 MG in Sodium Chloride 0.9% 100 ML IVPB SCH ×2 (02:36→13:31)
[2018-12-14] MEDS: Vancomycin HCl 750 MG in Sodium Chloride 0.9% 250 ML 250 ML IVPB SCH ×2 (02:37→13:31)
[2018-12-14] MEDS: Levothyroxine Sodium 75 MCG TAB PO SCH (05:16)
[2018-12-14] MEDS: cefTRIAXone\\ROCEPHIN 2 GM VIAL IVPB SCH (07:50)
[2018-12-14] MEDS: Polyethylene Glycol 3350 17 GM Packet PO SCH (08:08)
[2018-12-14] MEDS: levETIRAcetam 500 MG TAB PO SCH ×2 (08:08→20:27)
[2018-12-14] MEDS: Zinc Sulfate 220 MG CAP PO SCH (08:09)
[2018-12-14] MEDS: metFORMIN 500 MG TAB PO SCH ×2 (08:09→16:56)
[2018-12-14] MEDS: Docusate 100 MG CAP PO SCH ×2 (08:09→20:27)
[2018-12-14] MEDS: Pregabalin 75 MG CAP PO SCH ×2 (08:10→20:28)
[2018-12-14] MEDS: busPIRone HCl 5 MG TAB PO SCH ×2 (08:10→20:26)
[2018-12-14] MEDS: Amlodipine 5 MG TAB PO SCH (08:11)
[2018-12-14] MEDS: Saccharomyces boulardii 250 MG CAP PO SCH (08:11)
[2018-12-14] MEDS: Furosemide 20 MG TAB PO SCH (08:12)
[2018-12-14] MEDS: Enoxaparin Sodium 40 MG/0.4 ML SYRINGE SC SCH (08:12)
[2018-12-14] MEDS: Gemfibrozil 600 MG TAB PO SCH ×2 (08:12→16:56)
[2018-12-14] MEDS: HumaLOG 300 UNITS/3 ML VIAL SC PRN ×3 (08:13→16:56)
[2018-12-14] MEDS: Lantus 1000 UNITS/10 ML VIAL SC SCH (08:13)
[2018-12-14] MEDS: COLESEVELAM HCL 3.75 GM PO SCH ×2 (10:48→20:36)
[2018-12-14] MEDS: Citalopram 20 MG TAB PO SCH (20:26)
[2018-12-15] MEDS ORDERED: Vancomycin HCl 750 MG VIAL ONE ×2 (01:51→01:57)
[2018-12-15] MEDS: Vancomycin HCl 500 MG in Sodium Chloride 0.9% 100 ML IVPB SCH ×2 (02:15→13:18)
[2018-12-15] MEDS: Vancomycin HCl 750 MG in Sodium Chloride 0.9% 250 ML 250 ML IVPB SCH ×2 (02:17→13:18)
[2018-12-15] MEDS: Levothyroxine Sodium 75 MCG TAB PO SCH (05:18)
[2018-12-15] MEDS: cefTRIAXone\\ROCEPHIN 2 GM VIAL IVPB SCH (07:52)
[2018-12-15] MEDS: HumaLOG 300 UNITS/3 ML VIAL SC PRN ×4 (07:52→21:59)
[2018-12-15] MEDS: Lantus 1000 UNITS/10 ML VIAL SC SCH (07:52)
[2018-12-15] MEDS: Docusate 100 MG CAP PO SCH ×2 (07:53→20:54)
[2018-12-15] MEDS: Furosemide 20 MG TAB PO SCH (07:53)
[2018-12-15] MEDS: Polyethylene Glycol 3350 17 GM Packet PO SCH (07:53)
[2018-12-15] MEDS: metFORMIN 500 MG TAB PO SCH ×2 (07:53→17:02)
[2018-12-15] MEDS: levETIRAcetam 500 MG TAB PO SCH ×2 (07:53→20:54)
[2018-12-15] MEDS: Enoxaparin Sodium 40 MG/0.4 ML SYRINGE SC SCH (07:54)
[2018-12-15] MEDS: Pregabalin 75 MG CAP PO SCH ×2 (07:54→20:55)
[2018-12-15] MEDS: Zinc Sulfate 220 MG CAP PO SCH (07:55)
[2018-12-15] MEDS: busPIRone HCl 5 MG TAB PO SCH ×2 (07:55→20:53)
[2018-12-15] MEDS: COLESEVELAM HCL 3.75 GM PO SCH ×2 (07:58→20:58)
[2018-12-15] MEDS: Amlodipine 5 MG TAB PO SCH (07:58)
[2018-12-15] MEDS: Gemfibrozil 600 MG TAB PO SCH ×2 (07:58→17:03)
[2018-12-15] MEDS: Saccharomyces boulardii 250 MG CAP PO SCH (07:58)
[2018-12-15] MEDS: Citalopram 20 MG TAB PO SCH (20:53)
[2018-12-16] MEDS: Vancomycin HCl 750 MG in Sodium Chloride 0.9% 250 ML 250 ML IVPB SCH ×2 (02:04→14:03)
[2018-12-16] MEDS: Vancomycin HCl 500 MG in Sodium Chloride 0.9% 100 ML IVPB SCH ×2 (02:07→15:20)
[2018-12-16] MEDS: Levothyroxine Sodium 75 MCG TAB PO SCH (05:34)
[2018-12-16] MEDS: cefTRIAXone\\ROCEPHIN 2 GM VIAL IVPB SCH (08:07)
[2018-12-16] MEDS: Gemfibrozil 600 MG TAB PO SCH ×2 (08:07→16:59)
[2018-12-16] MEDS: Amlodipine 5 MG TAB PO SCH (08:08)
[2018-12-16] MEDS: metFORMIN 500 MG TAB PO SCH ×2 (08:08→16:58)
[2018-12-16] MEDS: busPIRone HCl 5 MG TAB PO SCH ×2 (08:09→20:46)
[2018-12-16] MEDS: Docusate 100 MG CAP PO SCH ×2 (08:10→20:50)
[2018-12-16] MEDS: Enoxaparin Sodium 40 MG/0.4 ML SYRINGE SC SCH (08:10)
[2018-12-16] MEDS: Furosemide 20 MG TAB PO SCH (08:11)
[2018-12-16] MEDS: Lantus 1000 UNITS/10 ML VIAL SC SCH (08:13)
[2018-12-16] MEDS: levETIRAcetam 500 MG TAB PO SCH ×2 (08:14→20:51)
[2018-12-16] MEDS: Polyethylene Glycol 3350 17 GM Packet PO SCH (08:17)
[2018-12-16] MEDS: COLESEVELAM HCL 3.75 GM PO SCH ×2 (08:17→22:34)
[2018-12-16] MEDS: Pregabalin 75 MG CAP PO SCH ×2 (08:17→21:01)
[2018-12-16] MEDS: Saccharomyces boulardii 250 MG CAP PO SCH (08:20)
[2018-12-16] MEDS: Zinc Sulfate 220 MG CAP PO SCH (09:41)
[2018-12-16] MEDS: HumaLOG 300 UNITS/3 ML VIAL SC PRN ×3 (11:58→22:36)
[2018-12-16] MEDS: traMADol HCl 50 MG TAB PO PRN (19:37)
[2018-12-16] MEDS: Citalopram 20 MG TAB PO SCH (20:50)
[2018-12-17] MEDS: Vancomycin HCl 750 MG in Sodium Chloride 0.9% 250 ML 250 ML IVPB SCH ×2 (01:24→13:35)
[2018-12-17] MEDS: Vancomycin HCl 500 MG in Sodium Chloride 0.9% 100 ML IVPB SCH ×2 (01:25→14:16)
[2018-12-17] MEDS: Levothyroxine Sodium 75 MCG TAB PO SCH (06:10)
[2018-12-17] MEDS: cefTRIAXone\\ROCEPHIN 2 GM VIAL IVPB SCH (07:12)
[2018-12-17] MEDS: Gemfibrozil 600 MG TAB PO SCH ×2 (07:12→16:39)
[2018-12-17] MEDS: metFORMIN 500 MG TAB PO SCH ×2 (07:12→16:39)
[2018-12-17] MEDS: Pregabalin 75 MG CAP PO SCH ×2 (09:17→21:47)
[2018-12-17] MEDS: Enoxaparin Sodium 40 MG/0.4 ML SYRINGE SC SCH (09:18)
[2018-12-17] MEDS: COLESEVELAM HCL 3.75 GM PO SCH ×2 (09:18→21:45)
[2018-12-17] MEDS: Polyethylene Glycol 3350 17 GM Packet PO SCH (09:18)
[2018-12-17] MEDS: busPIRone HCl 5 MG TAB PO SCH ×2 (09:19→21:43)
[2018-12-17] MEDS: Saccharomyces boulardii 250 MG CAP PO SCH (09:19)
[2018-12-17] MEDS: Zinc Sulfate 220 MG CAP PO SCH (09:19)
[2018-12-17] MEDS: Docusate 100 MG CAP PO SCH ×2 (09:21→21:44)
[2018-12-17] MEDS: Furosemide 20 MG TAB PO SCH (09:21)
[2018-12-17] MEDS: Amlodipine 5 MG TAB PO SCH (09:21)
[2018-12-17] MEDS: levETIRAcetam 500 MG TAB PO SCH ×2 (09:21→21:44)
[2018-12-17] MEDS: Lantus 1000 UNITS/10 ML VIAL SC SCH (09:22)
[2018-12-17] MEDS: HumaLOG 300 UNITS/3 ML VIAL SC PRN ×3 (09:24→21:53)
[2018-12-17] MEDS: Citalopram 20 MG TAB PO SCH (21:43)
[2018-12-18] MEDS: Vancomycin HCl 750 MG in Sodium Chloride 0.9% 250 ML 250 ML IVPB SCH ×2 (02:35→13:31)
[2018-12-18] MEDS: Vancomycin HCl 500 MG in Sodium Chloride 0.9% 100 ML IVPB SCH ×2 (02:37→14:21)
[2018-12-18] MEDS: Levothyroxine Sodium 75 MCG TAB PO SCH (05:04)
[2018-12-18] MEDS: cefTRIAXone\\ROCEPHIN 2 GM VIAL IVPB SCH (07:49)
[2018-12-18] MEDS: metFORMIN 500 MG TAB PO SCH ×2 (07:56→16:42)
[2018-12-18] MEDS: Gemfibrozil 600 MG TAB PO SCH ×2 (07:56→16:42)
[2018-12-18] MEDS: Enoxaparin Sodium 40 MG/0.4 ML SYRINGE SC SCH (09:01)
[2018-12-18] MEDS: levETIRAcetam 500 MG TAB PO SCH ×2 (09:01→20:47)
[2018-12-18] MEDS: busPIRone HCl 5 MG TAB PO SCH ×2 (09:02→20:46)
[2018-12-18] MEDS: Saccharomyces boulardii 250 MG CAP PO SCH (09:02)
[2018-12-18] MEDS: Amlodipine 5 MG TAB PO SCH (09:03)
[2018-12-18] MEDS: Furosemide 20 MG TAB PO SCH (09:03)
[2018-12-18] MEDS: Lantus 1000 UNITS/10 ML VIAL SC SCH (09:03)
[2018-12-18] MEDS: Docusate 100 MG CAP PO SCH ×2 (09:03→20:47)
[2018-12-18] MEDS: Zinc Sulfate 220 MG CAP PO SCH (09:03)
[2018-12-18] MEDS: HumaLOG 300 UNITS/3 ML VIAL SC PRN ×3 (09:04→16:42)
[2018-12-18] MEDS: Polyethylene Glycol 3350 17 GM Packet PO SCH (09:08)
[2018-12-18] MEDS: COLESEVELAM HCL 3.75 GM PO SCH ×2 (09:08→20:48)
[2018-12-18] MEDS: Pregabalin 75 MG CAP PO SCH ×2 (09:09→20:48)
[2018-12-18] MEDS: Citalopram 20 MG TAB PO SCH (20:46)
[2018-12-19] MEDS: Vancomycin HCl 750 MG in Sodium Chloride 0.9% 250 ML 250 ML IVPB SCH ×2 (02:15→14:10)
[2018-12-19] MEDS: Vancomycin HCl 500 MG in Sodium Chloride 0.9% 100 ML IVPB SCH ×2 (03:00→14:10)
[2018-12-19] MEDS: Levothyroxine Sodium 75 MCG TAB PO SCH (05:21)
[2018-12-19] MEDS: cefTRIAXone\\ROCEPHIN 2 GM VIAL IVPB SCH (08:06)
[2018-12-19] MEDS: Gemfibrozil 600 MG TAB PO SCH ×2 (08:06→17:05)
[2018-12-19] MEDS: levETIRAcetam 500 MG TAB PO SCH ×2 (08:07→21:29)
[2018-12-19] MEDS: metFORMIN 500 MG TAB PO SCH ×2 (08:08→17:05)
[2018-12-19] MEDS: Docusate 100 MG CAP PO SCH ×2 (08:46→21:26)
[2018-12-19] MEDS: Furosemide 20 MG TAB PO SCH (08:46)
[2018-12-19] MEDS: Zinc Sulfate 220 MG CAP PO SCH (08:46)
[2018-12-19] MEDS: busPIRone HCl 5 MG TAB PO SCH ×2 (08:46→21:26)
[2018-12-19] MEDS: Polyethylene Glycol 3350 17 GM Packet PO SCH (08:46)
[2018-12-19] MEDS: Pregabalin 75 MG CAP PO SCH ×2 (08:47→21:29)
[2018-12-19] MEDS: Saccharomyces boulardii 250 MG CAP PO SCH (08:47)
[2018-12-19] MEDS: Amlodipine 5 MG TAB PO SCH (08:49)
[2018-12-19] MEDS: Lantus 1000 UNITS/10 ML VIAL SC SCH (08:50)
[2018-12-19] MEDS: Enoxaparin Sodium 40 MG/0.4 ML SYRINGE SC SCH (08:50)
[2018-12-19] MEDS: COLESEVELAM HCL 3.75 GM PO SCH ×2 (08:53→21:35)
[2018-12-19] MEDS: HumaLOG 300 UNITS/3 ML VIAL SC PRN ×2 (12:30→17:03)
[2018-12-19] MEDS: Citalopram 20 MG TAB PO SCH (21:33)
[2018-12-20] MEDS: Vancomycin HCl 750 MG in Sodium Chloride 0.9% 250 ML 250 ML IVPB SCH ×2 (02:05→14:51)
[2018-12-20] MEDS: Vancomycin HCl 500 MG in Sodium Chloride 0.9% 100 ML IVPB SCH ×2 (02:06→14:51)
[2018-12-20 05:26] LABS: #Basophils 0.1 thou/uL (0.0-0.2); #Eosinphils 0.2 thou/uL (0.0-0.7); #Lymphocytes 3.8 thou/uL (1.20-3.40); #Monocytes 0.5 thou/uL (0.11-0.59); #Neutrophils 3.1 thou/uL (1.40-6.50); %Basophils 1.2 % (0.0-1.0); %Eosinophils 3.2 % (0.0-10.0); %Lymphocytes 49.3 % (21.0-51.0); %Monocytes 6.2 % (0.0-10.0); %Neutrophils 40.2 % (42.0-75.0); Hemoglobin 9.7 g/dL (14.0-18.0); Mean Corpuscular HGB CONC 30.4 g/dL (32.0-36.0); Mean Corpuscular Hemoglobin 26.4 pg (27.0-31.0); Mean Corpuscular Volume 86.9 fL (78.0-98.0); Platelet Count 335 thou/uL (130-400); RBC Distribution Width 15.6 % (11.5-14.5); White Blood Cell (WBC) Count 7.6 thou/uL (4.8-10.8)
[2018-12-20] MEDS: Levothyroxine Sodium 75 MCG TAB PO SCH (05:30)
[2018-12-20 05:36] LABS: Anion Gap 16 mmol/L (10-20); BUN (Urea Nitrogen) 23 mg/dL (8.4-25.7); Calc. Creatinine Clearance 166 mL/min (70-130); Calcium 9.7 mg/dL (7.8-10.44); Carbon Dioxide 26 mmol/L (22-29); Chloride 102 mmol/L (98-107); Estimated GFR-MDRD Greater than 90; Glucose 186 mg/dL (70-105); Potassium 4.5 mmol/L (3.5-5.1); Sodium 139 mmol/L (136-145)
[2018-12-20] MEDS: HumaLOG 300 UNITS/3 ML VIAL SC PRN ×4 (09:30→21:01)
[2018-12-20] MEDS: Lantus 1000 UNITS/10 ML VIAL SC SCH (09:31)
[2018-12-20] MEDS: Zinc Sulfate 220 MG CAP PO SCH (09:32)
[2018-12-20] MEDS: Enoxaparin Sodium 40 MG/0.4 ML SYRINGE SC SCH (09:32)
[2018-12-20] MEDS: busPIRone HCl 5 MG TAB PO SCH ×2 (09:33→20:45)
[2018-12-20] MEDS: Amlodipine 5 MG TAB PO SCH (09:33)
[2018-12-20] MEDS: Saccharomyces boulardii 250 MG CAP PO SCH (09:33)
[2018-12-20] MEDS: levETIRAcetam 500 MG TAB PO SCH ×2 (09:33→20:42)
[2018-12-20] MEDS: Furosemide 20 MG TAB PO SCH (09:34)
[2018-12-20] MEDS: metFORMIN 500 MG TAB PO SCH ×2 (09:34→17:17)
[2018-12-20] MEDS: Polyethylene Glycol 3350 17 GM Packet PO SCH (09:34)
[2018-12-20] MEDS: Docusate 100 MG CAP PO SCH ×2 (09:35→20:43)
[2018-12-20] MEDS: Pregabalin 75 MG CAP PO SCH ×2 (09:36→20:50)
[2018-12-20] MEDS: COLESEVELAM HCL 3.75 GM PO SCH ×2 (09:40→20:54)
[2018-12-20] MEDS: cefTRIAXone\\ROCEPHIN 2 GM VIAL IVPB SCH (09:41)
[2018-12-20] MEDS: Gemfibrozil 600 MG TAB PO SCH ×2 (09:43→17:17)
[2018-12-20 12:09] LABS: CRP (Inflammatory) 1.65 mg/dL (= or < 0.5)
[2018-12-20] MEDS: Citalopram 20 MG TAB PO SCH (20:46)
[2018-12-21] MEDS: Vancomycin HCl 500 MG in Sodium Chloride 0.9% 100 ML IVPB SCH ×2 (02:35→14:34)
[2018-12-21] MEDS: Vancomycin HCl 750 MG in Sodium Chloride 0.9% 250 ML 250 ML IVPB SCH ×2 (02:35→14:34)
[2018-12-21 05:18] VITALS: BMI 30.5
[2018-12-21] MEDS: Levothyroxine Sodium 75 MCG TAB PO SCH (06:24)
[2018-12-21] MEDS: cefTRIAXone\\ROCEPHIN 2 GM VIAL IVPB SCH (08:54)
[2018-12-21] MEDS: Gemfibrozil 600 MG TAB PO SCH ×2 (08:54→17:18)
[2018-12-21] MEDS: levETIRAcetam 500 MG TAB PO SCH ×2 (08:55→20:25)
[2018-12-21] MEDS: Amlodipine 5 MG TAB PO SCH (08:55)
[2018-12-21] MEDS: Enoxaparin Sodium 40 MG/0.4 ML SYRINGE SC SCH (08:56)
[2018-12-21] MEDS: busPIRone HCl 5 MG TAB PO SCH ×2 (08:56→20:48)
[2018-12-21] MEDS: Polyethylene Glycol 3350 17 GM Packet PO SCH (08:56)
[2018-12-21] MEDS: metFORMIN 500 MG TAB PO SCH ×2 (08:57→17:18)
[2018-12-21] MEDS: Saccharomyces boulardii 250 MG CAP PO SCH (08:57)
[2018-12-21] MEDS: Zinc Sulfate 220 MG CAP PO SCH (08:57)
[2018-12-21] MEDS: Docusate 100 MG CAP PO SCH ×2 (08:58→20:25)
[2018-12-21] MEDS: Furosemide 20 MG TAB PO SCH (08:58)
[2018-12-21] MEDS: Pregabalin 75 MG CAP PO SCH ×2 (08:58→20:28)
[2018-12-21] MEDS: Lantus 1000 UNITS/10 ML VIAL SC SCH (08:59)
[2018-12-21] MEDS: HumaLOG 300 UNITS/3 ML VIAL SC PRN ×4 (09:00→21:20)
[2018-12-21] MEDS: COLESEVELAM HCL 3.75 GM PO SCH ×2 (09:01→20:47)
[2018-12-21 13:27] LABS: Vancomycin, Trough 16.6 ug/mL
[2018-12-21] MEDS: Citalopram 20 MG TAB PO SCH (20:27)
[2018-12-22] MEDS: Vancomycin HCl 750 MG in Sodium Chloride 0.9% 250 ML 250 ML IVPB SCH ×2 (01:56→14:34)
[2018-12-22] MEDS: Vancomycin HCl 500 MG in Sodium Chloride 0.9% 100 ML IVPB SCH ×2 (02:00→14:34)
[2018-12-22] MEDS: Levothyroxine Sodium 75 MCG TAB PO SCH (06:27)
[2018-12-22] MEDS: HumaLOG 300 UNITS/3 ML VIAL SC PRN ×4 (08:31→21:05)
[2018-12-22] MEDS: Polyethylene Glycol 3350 17 GM Packet PO SCH (08:31)
[2018-12-22] MEDS: Lantus 1000 UNITS/10 ML VIAL SC SCH (08:31)
[2018-12-22] MEDS: Enoxaparin Sodium 40 MG/0.4 ML SYRINGE SC SCH (08:31)
[2018-12-22] MEDS: Saccharomyces boulardii 250 MG CAP PO SCH (08:32)
[2018-12-22] MEDS: Docusate 100 MG CAP PO SCH ×2 (08:32→21:07)
[2018-12-22] MEDS: levETIRAcetam 500 MG TAB PO SCH ×2 (08:32→21:07)
[2018-12-22] MEDS: Amlodipine 5 MG TAB PO SCH (08:32)
[2018-12-22] MEDS: Zinc Sulfate 220 MG CAP PO SCH (08:33)
[2018-12-22] MEDS: busPIRone HCl 5 MG TAB PO SCH ×2 (08:33→21:19)
[2018-12-22] MEDS: Gemfibrozil 600 MG TAB PO SCH ×2 (08:33→17:13)
[2018-12-22] MEDS: Furosemide 20 MG TAB PO SCH (08:33)
[2018-12-22] MEDS: metFORMIN 500 MG TAB PO SCH ×2 (08:34→17:11)
[2018-12-22] MEDS: cefTRIAXone\\ROCEPHIN 2 GM VIAL IVPB SCH (08:34)
[2018-12-22] MEDS: COLESEVELAM HCL 3.75 GM PO SCH ×2 (08:34→21:19)
[2018-12-22] MEDS: Pregabalin 75 MG CAP PO SCH ×2 (08:35→21:09)
[2018-12-22] MEDS: Citalopram 20 MG TAB PO SCH (21:07)
[2018-12-23] MEDS: Vancomycin HCl 500 MG in Sodium Chloride 0.9% 100 ML IVPB SCH ×2 (03:43→14:53)
[2018-12-23] MEDS: Vancomycin HCl 750 MG in Sodium Chloride 0.9% 250 ML 250 ML IVPB SCH ×2 (03:43→14:53)
[2018-12-23] MEDS: Levothyroxine Sodium 75 MCG TAB PO SCH (06:07)
[2018-12-23] MEDS: Lantus 1000 UNITS/10 ML VIAL SC SCH (08:19)
[2018-12-23] MEDS: HumaLOG 300 UNITS/3 ML VIAL SC PRN ×4 (08:19→21:24)
[2018-12-23] MEDS: Polyethylene Glycol 3350 17 GM Packet PO SCH (08:20)
[2018-12-23] MEDS: Enoxaparin Sodium 40 MG/0.4 ML SYRINGE SC SCH (08:20)
[2018-12-23] MEDS: cefTRIAXone\\ROCEPHIN 2 GM VIAL IVPB SCH (08:20)
[2018-12-23] MEDS: metFORMIN 500 MG TAB PO SCH ×2 (08:21→17:01)
[2018-12-23] MEDS: Gemfibrozil 600 MG TAB PO SCH ×2 (08:22→17:01)
[2018-12-23] MEDS: Docusate 100 MG CAP PO SCH ×2 (08:22→20:32)
[2018-12-23] MEDS: busPIRone HCl 5 MG TAB PO SCH ×2 (08:22→20:29)
[2018-12-23] MEDS: Amlodipine 5 MG TAB PO SCH (08:22)
[2018-12-23] MEDS: Zinc Sulfate 220 MG CAP PO SCH (08:22)
[2018-12-23] MEDS: Saccharomyces boulardii 250 MG CAP PO SCH (08:22)
[2018-12-23] MEDS: Furosemide 20 MG TAB PO SCH (08:22)
[2018-12-23] MEDS: levETIRAcetam 500 MG TAB PO SCH ×2 (08:23→20:24)
[2018-12-23] MEDS: COLESEVELAM HCL 3.75 GM PO SCH ×2 (08:24→20:32)
[2018-12-23] MEDS: Pregabalin 75 MG CAP PO SCH ×2 (08:24→20:26)
[2018-12-23] MEDS: traMADol HCl 50 MG TAB PO PRN (19:26)
[2018-12-23] MEDS: Citalopram 20 MG TAB PO SCH (20:29)
[2018-12-24] MEDS: Vancomycin HCl 750 MG in Sodium Chloride 0.9% 250 ML 250 ML IVPB SCH ×2 (02:02→14:20)
[2018-12-24] MEDS: Vancomycin HCl 500 MG in Sodium Chloride 0.9% 100 ML IVPB SCH ×2 (02:03→14:20)
[2018-12-24] MEDS: Levothyroxine Sodium 75 MCG TAB PO SCH (05:52)
[2018-12-24] MEDS: Zinc Sulfate 220 MG CAP PO SCH (09:01)
[2018-12-24] MEDS: Pregabalin 75 MG CAP PO SCH ×2 (09:01→20:35)
[2018-12-24] MEDS: busPIRone HCl 5 MG TAB PO SCH ×2 (09:02→20:33)
[2018-12-24] MEDS: Saccharomyces boulardii 250 MG CAP PO SCH (09:02)
[2018-12-24] MEDS: Gemfibrozil 600 MG TAB PO SCH ×2 (09:02→17:16)
[2018-12-24] MEDS: metFORMIN 500 MG TAB PO SCH ×2 (09:02→17:16)
[2018-12-24] MEDS: levETIRAcetam 500 MG TAB PO SCH ×2 (09:02→20:35)
[2018-12-24] MEDS: Furosemide 20 MG TAB PO SCH (09:02)
[2018-12-24] MEDS: Docusate 100 MG CAP PO SCH ×2 (09:02→20:35)
[2018-12-24] MEDS: Enoxaparin Sodium 40 MG/0.4 ML SYRINGE SC SCH (09:03)
[2018-12-24] MEDS: Lantus 1000 UNITS/10 ML VIAL SC SCH (09:03)
[2018-12-24] MEDS: Amlodipine 5 MG TAB PO SCH (09:03)
[2018-12-24] MEDS: Polyethylene Glycol 3350 17 GM Packet PO SCH (09:03)
[2018-12-24] MEDS: cefTRIAXone\\ROCEPHIN 2 GM VIAL IVPB SCH (09:04)
[2018-12-24] MEDS: HumaLOG 300 UNITS/3 ML VIAL SC PRN ×4 (09:05→21:13)
[2018-12-24] MEDS: COLESEVELAM HCL 3.75 GM PO SCH ×2 (09:05→20:35)
[2018-12-24] MEDS: Citalopram 20 MG TAB PO SCH (20:34)
[2018-12-25] MEDS: Vancomycin HCl 750 MG in Sodium Chloride 0.9% 250 ML 250 ML IVPB SCH ×3 (01:52→17:40)
[2018-12-25] MEDS: Vancomycin HCl 500 MG in Sodium Chloride 0.9% 100 ML IVPB SCH ×3 (01:52→17:40)
[2018-12-25] MEDS: Levothyroxine Sodium 75 MCG TAB PO SCH (05:54)
[2018-12-25] MEDS: Polyethylene Glycol 3350 17 GM Packet PO SCH (08:19)
[2018-12-25] MEDS: Pregabalin 75 MG CAP PO SCH ×2 (08:20→20:35)
[2018-12-25] MEDS: metFORMIN 500 MG TAB PO SCH ×2 (08:20→16:54)
[2018-12-25] MEDS: Saccharomyces boulardii 250 MG CAP PO SCH (08:20)
[2018-12-25] MEDS: levETIRAcetam 500 MG TAB PO SCH ×2 (08:20→20:33)
[2018-12-25] MEDS: Gemfibrozil 600 MG TAB PO SCH ×2 (08:21→16:54)
[2018-12-25] MEDS: Docusate 100 MG CAP PO SCH ×2 (08:21→20:31)
[2018-12-25] MEDS: Furosemide 20 MG TAB PO SCH (08:21)
[2018-12-25] MEDS: Amlodipine 5 MG TAB PO SCH (08:21)
[2018-12-25] MEDS: busPIRone HCl 5 MG TAB PO SCH ×2 (08:21→20:33)
[2018-12-25] MEDS: Zinc Sulfate 220 MG CAP PO SCH (08:22)
[2018-12-25] MEDS: HumaLOG 300 UNITS/3 ML VIAL SC PRN ×4 (08:22→21:16)
[2018-12-25] MEDS: Lantus 1000 UNITS/10 ML VIAL SC SCH (08:23)
[2018-12-25] MEDS: cefTRIAXone\\ROCEPHIN 2 GM VIAL IVPB SCH (08:24)
[2018-12-25] MEDS: Enoxaparin Sodium 40 MG/0.4 ML SYRINGE SC SCH (08:24)
[2018-12-25] MEDS: COLESEVELAM HCL 3.75 GM PO SCH ×2 (08:25→20:35)
[2018-12-25] MEDS: traMADol HCl 50 MG TAB PO PRN (11:07)
[2018-12-25] MEDS: Citalopram 20 MG TAB PO SCH (20:34)
[2018-12-26] MEDS: Vancomycin HCl 500 MG in Sodium Chloride 0.9% 100 ML IVPB SCH ×2 (04:36→16:28)
[2018-12-26] MEDS: Vancomycin HCl 750 MG in Sodium Chloride 0.9% 250 ML 250 ML IVPB SCH ×2 (04:37→16:28)
[2018-12-26] MEDS: Levothyroxine Sodium 75 MCG TAB PO SCH (05:57)
[2018-12-26] MEDS: Polyethylene Glycol 3350 17 GM Packet PO SCH (08:30)
[2018-12-26] MEDS: Saccharomyces boulardii 250 MG CAP PO SCH (08:30)
[2018-12-26] MEDS: Zinc Sulfate 220 MG CAP PO SCH (08:30)
[2018-12-26] MEDS: Lantus 1000 UNITS/10 ML VIAL SC SCH (08:30)
[2018-12-26] MEDS: levETIRAcetam 500 MG TAB PO SCH ×2 (08:30→21:53)
[2018-12-26] MEDS: Docusate 100 MG CAP PO SCH ×2 (08:31→21:52)
[2018-12-26] MEDS: busPIRone HCl 5 MG TAB PO SCH ×2 (08:31→21:49)
[2018-12-26] MEDS: Pregabalin 75 MG CAP PO SCH ×2 (08:32→21:50)
[2018-12-26] MEDS: Gemfibrozil 600 MG TAB PO SCH ×2 (08:33→16:26)
[2018-12-26] MEDS: Enoxaparin Sodium 40 MG/0.4 ML SYRINGE SC SCH (08:34)
[2018-12-26] MEDS: metFORMIN 500 MG TAB PO SCH ×2 (08:34→16:26)
[2018-12-26] MEDS: Amlodipine 5 MG TAB PO SCH (08:34)
[2018-12-26] MEDS: Furosemide 20 MG TAB PO SCH (08:34)
[2018-12-26] MEDS: cefTRIAXone\\ROCEPHIN 2 GM VIAL IVPB SCH (08:35)
[2018-12-26] MEDS: COLESEVELAM HCL 3.75 GM PO SCH ×2 (08:36→21:52)
[2018-12-26] MEDS: HumaLOG 300 UNITS/3 ML VIAL SC PRN ×4 (08:39→21:47)
[2018-12-26] MEDS: traMADol HCl 50 MG TAB PO PRN (08:48)
[2018-12-26] MEDS: Citalopram 20 MG TAB PO SCH (21:52)
[2018-12-27] MEDS: Vancomycin HCl 750 MG in Sodium Chloride 0.9% 250 ML 250 ML IVPB SCH ×2 (05:06→17:11)
[2018-12-27] MEDS: Levothyroxine Sodium 75 MCG TAB PO SCH (05:07)
[2018-12-27] MEDS: Vancomycin HCl 500 MG in Sodium Chloride 0.9% 100 ML IVPB SCH ×2 (05:07→17:11)
[2018-12-27 07:22] LABS: #Basophils 0.1 thou/uL (0.0-0.2); #Eosinphils 0.3 thou/uL (0.0-0.7); #Lymphocytes 3.4 thou/uL (1.20-3.40); #Monocytes 0.7 thou/uL (0.11-0.59); #Neutrophils 2.4 thou/uL (1.40-6.50); %Eosinophils 4.2 % (0.0-10.0); %Lymphocytes 49.4 % (21.0-51.0); %Monocytes 10.1 % (0.0-10.0); %Neutrophils 35.3 % (42.0-75.0); Hemoglobin 10.5 g/dL (14.0-18.0); Mean Corpuscular HGB CONC 31.5 g/dL (32.0-36.0); Mean Corpuscular Hemoglobin 26.8 pg (27.0-31.0); Mean Corpuscular Volume 85.2 fL (78.0-98.0); Mean Platelet Volume 8.6 fL (7.4-10.4); Platelet Count 297 thou/uL (130-400); Red Blood Cell (RBC) Count 3.91 mill/uL (4.70-6.10); White Blood Cell (WBC) Count 6.8 thou/uL (4.8-10.8)
[2018-12-27 07:39] LABS: Anion Gap 16 mmol/L (10-20); BUN (Urea Nitrogen) 23 mg/dL (8.4-25.7); Calc. Creatinine Clearance 163 mL/min (70-130); Calcium 9.8 mg/dL (7.8-10.44); Carbon Dioxide 24 mmol/L (22-29); Chloride 104 mmol/L (98-107); Estimated GFR-MDRD Greater than 90; Glucose 261 mg/dL (70-105); Potassium 4.9 mmol/L (3.5-5.1); Sodium 139 mmol/L (136-145)
[2018-12-27] MEDS: HumaLOG 300 UNITS/3 ML VIAL SC PRN ×4 (09:11→20:39)
[2018-12-27] MEDS: Lantus 1000 UNITS/10 ML VIAL SC SCH (09:14)
[2018-12-27] MEDS: cefTRIAXone\\ROCEPHIN 2 GM in Sodium Chloride 0.9% 100 ML IVPB SCH (09:15)
[2018-12-27] MEDS: Enoxaparin Sodium 40 MG/0.4 ML SYRINGE SC SCH (09:15)
[2018-12-27] MEDS: Zinc Sulfate 220 MG CAP PO SCH (09:16)
[2018-12-27] MEDS: levETIRAcetam 500 MG TAB PO SCH ×2 (09:16→20:30)
[2018-12-27] MEDS: Amlodipine 5 MG TAB PO SCH (09:17)
[2018-12-27] MEDS: Saccharomyces boulardii 250 MG CAP PO SCH (09:18)
[2018-12-27] MEDS: metFORMIN 500 MG TAB PO SCH ×2 (09:19→17:10)
[2018-12-27] MEDS: Gemfibrozil 600 MG TAB PO SCH ×2 (09:19→17:11)
[2018-12-27] MEDS: Docusate 100 MG CAP PO SCH ×2 (09:19→20:34)
[2018-12-27] MEDS: Furosemide 20 MG TAB PO SCH (09:19)
[2018-12-27] MEDS: busPIRone HCl 5 MG TAB PO SCH ×2 (09:19→20:37)
[2018-12-27] MEDS: Pregabalin 75 MG CAP PO SCH ×2 (09:20→20:26)
[2018-12-27] MEDS: Polyethylene Glycol 3350 17 GM Packet PO SCH (09:20)
[2018-12-27] MEDS: COLESEVELAM HCL 3.75 GM PO SCH ×2 (09:21→20:38)
[2018-12-27] MEDS ORDERED: Sodium Chloride Irrig Solution 250 ML BOT ONE (10:59)
[2018-12-27 11:50] LABS: CRP (Inflammatory) 4.16 mg/dL (= or < 0.5)
[2018-12-27 17:42] LABS: PTT 27.8 SEC (22.9-36.1); Prothrombin Time 13.4 SEC (12.0-14.7)
[2018-12-27] MEDS: Citalopram 20 MG TAB PO SCH (20:37)
[2018-12-28] MEDS: Vancomycin HCl 500 MG in Sodium Chloride 0.9% 100 ML IVPB SCH ×2 (04:51→17:12)
[2018-12-28] MEDS: Levothyroxine Sodium 75 MCG TAB PO SCH (05:00)
[2018-12-28] MEDS: Vancomycin HCl 750 MG in Sodium Chloride 0.9% 250 ML 250 ML IVPB SCH ×2 (05:00→17:12)
[2018-12-28] MEDS ORDERED: Insulin Glargine 25 UNITS in Pre-Filled Syringe 1 EACH SC SCH (09:00)
[2018-12-28] MEDS: Saccharomyces boulardii 250 MG CAP PO SCH (09:12)
[2018-12-28] MEDS: Amlodipine 5 MG TAB PO SCH (09:12)
[2018-12-28] MEDS: busPIRone HCl 5 MG TAB PO SCH ×2 (09:13→20:48)
[2018-12-28] MEDS: Docusate 100 MG CAP PO SCH ×2 (09:13→20:49)
[2018-12-28] MEDS: levETIRAcetam 500 MG TAB PO SCH ×2 (09:13→20:49)
[2018-12-28] MEDS: metFORMIN 500 MG TAB PO SCH ×2 (09:13→17:11)
[2018-12-28] MEDS: Zinc Sulfate 220 MG CAP PO SCH (09:13)
[2018-12-28] MEDS: Gemfibrozil 600 MG TAB PO SCH ×2 (09:13→17:11)
[2018-12-28] MEDS: Furosemide 20 MG TAB PO SCH (09:14)
[2018-12-28] MEDS: Pregabalin 75 MG CAP PO SCH ×2 (09:14→20:50)
[2018-12-28] MEDS: Polyethylene Glycol 3350 17 GM Packet PO SCH (09:15)
[2018-12-28] MEDS: COLESEVELAM HCL 3.75 GM PO SCH ×2 (09:15→20:50)
[2018-12-28] MEDS: Enoxaparin Sodium 40 MG/0.4 ML SYRINGE SC SCH (09:17)
[2018-12-28] MEDS: cefTRIAXone\\ROCEPHIN 2 GM in Sodium Chloride 0.9% 100 ML IVPB SCH (09:17)
[2018-12-28] MEDS: Lantus 1000 UNITS/10 ML VIAL SC SCH (09:17)
[2018-12-28] MEDS: HumaLOG 300 UNITS/3 ML VIAL SC PRN ×3 (09:18→17:11)
[2018-12-28] MEDS: Citalopram 20 MG TAB PO SCH (20:48)
[2018-12-29] MEDS: Vancomycin HCl 750 MG in Sodium Chloride 0.9% 250 ML 250 ML IVPB SCH ×2 (05:08→17:35)
[2018-12-29] MEDS: Vancomycin HCl 500 MG in Sodium Chloride 0.9% 100 ML IVPB SCH ×2 (05:08→17:35)
[2018-12-29] MEDS: Levothyroxine Sodium 75 MCG TAB PO SCH (05:09)
[2018-12-29] MEDS: Enoxaparin Sodium 40 MG/0.4 ML SYRINGE SC SCH (08:21)
[2018-12-29] MEDS: Polyethylene Glycol 3350 17 GM Packet PO SCH (08:21)
[2018-12-29] MEDS: metFORMIN 500 MG TAB PO SCH ×2 (08:22→17:35)
[2018-12-29] MEDS: cefTRIAXone\\ROCEPHIN 2 GM in Sodium Chloride 0.9% 100 ML IVPB SCH (08:22)
[2018-12-29] MEDS: busPIRone HCl 5 MG TAB PO SCH ×2 (08:22→20:24)
[2018-12-29] MEDS: Docusate 100 MG CAP PO SCH ×2 (08:22→20:24)
[2018-12-29] MEDS: Furosemide 20 MG TAB PO SCH (08:22)
[2018-12-29] MEDS: Zinc Sulfate 220 MG CAP PO SCH (08:22)
[2018-12-29] MEDS: Saccharomyces boulardii 250 MG CAP PO SCH (08:22)
[2018-12-29] MEDS: Pregabalin 75 MG CAP PO SCH ×2 (08:23→20:25)
[2018-12-29] MEDS: levETIRAcetam 500 MG TAB PO SCH ×2 (08:23→20:24)
[2018-12-29] MEDS: Amlodipine 5 MG TAB PO SCH (08:23)
[2018-12-29] MEDS: Gemfibrozil 600 MG TAB PO SCH ×2 (08:23→17:35)
[2018-12-29] MEDS: Lantus 1000 UNITS/10 ML VIAL SC SCH (08:24)
[2018-12-29] MEDS: HumaLOG 300 UNITS/3 ML VIAL SC PRN ×3 (08:24→17:35)
[2018-12-29] MEDS: COLESEVELAM HCL 3.75 GM PO SCH ×2 (08:25→20:25)
[2018-12-29] MEDS: Citalopram 20 MG TAB PO SCH (20:24)
[2018-12-30] MEDS: Vancomycin HCl 750 MG in Sodium Chloride 0.9% 250 ML 250 ML IVPB SCH ×2 (05:21→17:36)
[2018-12-30] MEDS: Vancomycin HCl 500 MG in Sodium Chloride 0.9% 100 ML IVPB SCH ×2 (05:21→17:35)
[2018-12-30] MEDS: Levothyroxine Sodium 75 MCG TAB PO SCH (05:23)
[2018-12-30] MEDS: Lantus 1000 UNITS/10 ML VIAL SC SCH (08:37)
[2018-12-30] MEDS: HumaLOG 300 UNITS/3 ML VIAL SC PRN ×4 (08:38→21:11)
[2018-12-30] MEDS: Saccharomyces boulardii 250 MG CAP PO SCH (08:39)
[2018-12-30] MEDS: Enoxaparin Sodium 40 MG/0.4 ML SYRINGE SC SCH (08:40)
[2018-12-30] MEDS: metFORMIN 500 MG TAB PO SCH ×2 (08:40→17:34)
[2018-12-30] MEDS: levETIRAcetam 500 MG TAB PO SCH ×2 (08:40→20:48)
[2018-12-30] MEDS: Amlodipine 5 MG TAB PO SCH (08:41)
[2018-12-30] MEDS: Gemfibrozil 600 MG TAB PO SCH ×2 (08:41→17:34)
[2018-12-30] MEDS: Furosemide 20 MG TAB PO SCH (08:41)
[2018-12-30] MEDS: Docusate 100 MG CAP PO SCH ×2 (08:41→20:49)
[2018-12-30] MEDS: busPIRone HCl 5 MG TAB PO SCH ×2 (08:41→20:49)
[2018-12-30] MEDS: COLESEVELAM HCL 3.75 GM PO SCH ×2 (08:42→20:56)
[2018-12-30] MEDS: cefTRIAXone\\ROCEPHIN 2 GM in Sodium Chloride 0.9% 100 ML IVPB SCH (08:42)
[2018-12-30] MEDS: Zinc Sulfate 220 MG CAP PO SCH (08:42)
[2018-12-30] MEDS: Pregabalin 75 MG CAP PO SCH ×2 (08:42→20:51)
[2018-12-30] MEDS: Polyethylene Glycol 3350 17 GM Packet PO SCH (08:42)
[2018-12-30] MEDS: Citalopram 20 MG TAB PO SCH (20:53)
[2018-12-31] MEDS: Vancomycin HCl 750 MG in Sodium Chloride 0.9% 250 ML 250 ML IVPB SCH (04:55)
[2018-12-31] MEDS: Vancomycin HCl 500 MG in Sodium Chloride 0.9% 100 ML IVPB SCH (04:55)
[2018-12-31] MEDS: Levothyroxine Sodium 75 MCG TAB PO SCH (05:02)
[2018-12-31] MEDS: Polyethylene Glycol 3350 17 GM Packet PO SCH (08:56)
[2018-12-31] MEDS: Gemfibrozil 600 MG TAB PO SCH ×2 (08:57→16:56)
[2018-12-31] MEDS: Docusate 100 MG CAP PO SCH ×2 (08:57→21:22)
[2018-12-31] MEDS: levETIRAcetam 500 MG TAB PO SCH ×2 (08:57→21:22)
[2018-12-31] MEDS: metFORMIN 500 MG TAB PO SCH ×2 (08:57→16:56)
[2018-12-31] MEDS: Amlodipine 5 MG TAB PO SCH (08:57)
[2018-12-31] MEDS: Saccharomyces boulardii 250 MG CAP PO SCH (08:58)
[2018-12-31] MEDS: Zinc Sulfate 220 MG CAP PO SCH (08:58)
[2018-12-31] MEDS: Furosemide 20 MG TAB PO SCH (08:58)
[2018-12-31] MEDS: busPIRone HCl 5 MG TAB PO SCH ×2 (08:58→21:21)
[2018-12-31] MEDS: COLESEVELAM HCL 3.75 GM PO SCH ×2 (08:59→21:38)
[2018-12-31] MEDS: Pregabalin 75 MG CAP PO SCH ×2 (08:59→21:35)
[2018-12-31] MEDS: cefTRIAXone\\ROCEPHIN 2 GM in Sodium Chloride 0.9% 100 ML IVPB SCH (09:00)
[2018-12-31] MEDS: Lantus 1000 UNITS/10 ML VIAL SC SCH (09:00)
[2018-12-31] MEDS: Enoxaparin Sodium 40 MG/0.4 ML SYRINGE SC SCH (09:00)
[2018-12-31] MEDS: HumaLOG 300 UNITS/3 ML VIAL SC PRN ×4 (09:01→21:30)
[2018-12-31 16:27] LABS: Vancomycin, Trough 22.1 ug/mL
[2018-12-31] MEDS: Vancomycin HCl 1 GM in Sodium Chloride 0.9% 250 ML 250 ML IVPB SCH (17:23)
[2018-12-31] MEDS: Citalopram 20 MG TAB PO SCH (21:21)
[2019-01-01] MEDS: Levothyroxine Sodium 75 MCG TAB PO SCH (05:04)
[2019-01-01] MEDS: Vancomycin HCl 1 GM in Sodium Chloride 0.9% 250 ML 250 ML IVPB SCH ×2 (05:06→16:42)
[2019-01-01] MEDS: Gemfibrozil 600 MG TAB PO SCH ×2 (08:01→16:42)
[2019-01-01] MEDS: cefTRIAXone\\ROCEPHIN 2 GM in Sodium Chloride 0.9% 100 ML IVPB SCH (09:01)
[2019-01-01] MEDS: Enoxaparin Sodium 40 MG/0.4 ML SYRINGE SC SCH (09:07)
[2019-01-01] MEDS: Saccharomyces boulardii 250 MG CAP PO SCH (09:07)
[2019-01-01] MEDS: busPIRone HCl 5 MG TAB PO SCH ×2 (09:08→20:16)
[2019-01-01] MEDS: Docusate 100 MG CAP PO SCH ×2 (09:08→20:17)
[2019-01-01] MEDS: Pregabalin 75 MG CAP PO SCH ×2 (09:10→20:17)
[2019-01-01] MEDS: metFORMIN 500 MG TAB PO SCH ×2 (09:11→16:44)
[2019-01-01] MEDS: Furosemide 20 MG TAB PO SCH (09:12)
[2019-01-01] MEDS: Polyethylene Glycol 3350 17 GM Packet PO SCH (09:12)
[2019-01-01] MEDS: Zinc Sulfate 220 MG CAP PO SCH (09:12)
[2019-01-01] MEDS: Amlodipine 5 MG TAB PO SCH (09:12)
[2019-01-01] MEDS: levETIRAcetam 500 MG TAB PO SCH ×2 (09:13→20:17)
[2019-01-01] MEDS: COLESEVELAM HCL 3.75 GM PO SCH ×2 (09:13→20:16)
[2019-01-01] MEDS: Lantus 1000 UNITS/10 ML VIAL SC SCH (09:14)
[2019-01-01] MEDS: HumaLOG 300 UNITS/3 ML VIAL SC PRN ×3 (12:07→21:03)
[2019-01-01] MEDS: Citalopram 20 MG TAB PO SCH (20:16)
[2019-01-02 04:18] LABS: Vancomycin, Trough 19.7 ug/mL
[2019-01-02 04:49] LABS: Calc. Creatinine Clearance 165 mL/min (70-130); Estimated GFR-MDRD Greater than 90
[2019-01-02] MEDS: Levothyroxine Sodium 75 MCG TAB PO SCH (05:05)
[2019-01-02] MEDS: Vancomycin HCl 1 GM in Sodium Chloride 0.9% 250 ML 250 ML IVPB SCH ×2 (05:06→16:59)
[2019-01-02] MEDS: Saccharomyces boulardii 250 MG CAP PO SCH (08:32)
[2019-01-02] MEDS: levETIRAcetam 500 MG TAB PO SCH ×2 (08:32→20:15)
[2019-01-02] MEDS: metFORMIN 500 MG TAB PO SCH ×2 (08:32→16:58)
[2019-01-02] MEDS: busPIRone HCl 5 MG TAB PO SCH ×2 (08:32→20:14)
[2019-01-02] MEDS: Docusate 100 MG CAP PO SCH ×2 (08:32→20:15)
[2019-01-02] MEDS: Lantus 1000 UNITS/10 ML VIAL SC SCH (08:33)
[2019-01-02] MEDS: HumaLOG 300 UNITS/3 ML VIAL SC PRN ×4 (08:35→22:13)
[2019-01-02] MEDS: Polyethylene Glycol 3350 17 GM Packet PO SCH (08:36)
[2019-01-02] MEDS: Enoxaparin Sodium 40 MG/0.4 ML SYRINGE SC SCH (08:36)
[2019-01-02] MEDS: Pregabalin 75 MG CAP PO SCH ×2 (08:37→20:16)
[2019-01-02] MEDS: Furosemide 20 MG TAB PO SCH (08:37)
[2019-01-02] MEDS: Zinc Sulfate 220 MG CAP PO SCH (08:38)
[2019-01-02] MEDS: Amlodipine 5 MG TAB PO SCH (08:38)
[2019-01-02] MEDS: Gemfibrozil 600 MG TAB PO SCH ×2 (08:38→16:59)
[2019-01-02] MEDS: cefTRIAXone\\ROCEPHIN 2 GM in Sodium Chloride 0.9% 100 ML IVPB SCH (08:39)
[2019-01-02] MEDS: COLESEVELAM HCL 3.75 GM PO SCH ×2 (08:40→20:16)
[2019-01-02] MEDS: Citalopram 20 MG TAB PO SCH (20:15)
[2019-01-03] MEDS: Vancomycin HCl 1 GM in Sodium Chloride 0.9% 250 ML 250 ML IVPB SCH ×2 (04:29→17:10)
[2019-01-03] MEDS: Levothyroxine Sodium 75 MCG TAB PO SCH (06:01)
[2019-01-03] MEDS: Gemfibrozil 600 MG TAB PO SCH ×2 (07:48→16:33)
[2019-01-03] MEDS: HumaLOG 300 UNITS/3 ML VIAL SC PRN ×4 (08:03→20:47)
[2019-01-03] MEDS: Docusate 100 MG CAP PO SCH ×2 (08:06→20:33)
[2019-01-03] MEDS: Saccharomyces boulardii 250 MG CAP PO SCH (08:06)
[2019-01-03] MEDS: Amlodipine 5 MG TAB PO SCH (08:06)
[2019-01-03] MEDS: cefTRIAXone\\ROCEPHIN 2 GM in Sodium Chloride 0.9% 100 ML IVPB SCH (08:07)
[2019-01-03] MEDS: Enoxaparin Sodium 40 MG/0.4 ML SYRINGE SC SCH (08:07)
[2019-01-03] MEDS: Zinc Sulfate 220 MG CAP PO SCH (08:07)
[2019-01-03] MEDS: levETIRAcetam 500 MG TAB PO SCH ×2 (08:08→20:28)
[2019-01-03] MEDS: Pregabalin 75 MG CAP PO SCH ×2 (08:08→20:28)
[2019-01-03] MEDS: Furosemide 20 MG TAB PO SCH (08:10)
[2019-01-03] MEDS: busPIRone HCl 5 MG TAB PO SCH ×2 (08:10→20:33)
[2019-01-03] MEDS: Polyethylene Glycol 3350 17 GM Packet PO SCH (08:10)
[2019-01-03] MEDS: metFORMIN 500 MG TAB PO SCH ×2 (08:10→16:32)
[2019-01-03] MEDS: COLESEVELAM HCL 3.75 GM PO SCH ×2 (08:12→20:34)
[2019-01-03] MEDS ORDERED: Insulin Glargine 30 UNITS in Pre-Filled Syringe 1 EACH SC SCH (09:00)
[2019-01-03] MEDS: Lantus 1000 UNITS/10 ML VIAL SC SCH (09:12)
[2019-01-03 16:43] LABS: #Eosinphils 0.4 thou/uL (0.0-0.7); #Lymphocytes 3.4 thou/uL (1.20-3.40); #Monocytes 0.6 thou/uL (0.11-0.59); #Neutrophils 3.6 thou/uL (1.40-6.50); %Basophils 0.5 % (0.0-1.0); %Eosinophils 4.9 % (0.0-10.0); %Lymphocytes 42.2 % (21.0-51.0); %Neutrophils 44.5 % (42.0-75.0); Hemoglobin 10.7 g/dL (14.0-18.0); Mean Corpuscular HGB CONC 31.5 g/dL (32.0-36.0); Mean Corpuscular Hemoglobin 26.8 pg (27.0-31.0); Mean Corpuscular Volume 85.1 fL (78.0-98.0); Mean Platelet Volume 8.4 fL (7.4-10.4); Platelet Count 313 thou/uL (130-400); RBC Distribution Width 14.8 % (11.5-14.5); Red Blood Cell (RBC) Count 3.99 mill/uL (4.70-6.10); White Blood Cell (WBC) Count 8.1 thou/uL (4.8-10.8)
[2019-01-03 16:54] LABS: Vancomycin, Trough 20.1 ug/mL
[2019-01-03 16:55] LABS: Anion Gap 17 mmol/L (10-20); BUN (Urea Nitrogen) 30 mg/dL (8.4-25.7); Calc. Creatinine Clearance 168 mL/min (70-130); Carbon Dioxide 24 mmol/L (22-29); Chloride 101 mmol/L (98-107); Estimated GFR-MDRD Greater than 90; Glucose 200 mg/dL (70-105); Sodium 137 mmol/L (136-145)
[2019-01-03] MEDS: Citalopram 20 MG TAB PO SCH (20:33)
[2019-01-03 22:33] LABS: CRP (Inflammatory) 1.84 mg/dL (= or < 0.5)
[2019-01-04] MEDS: Levothyroxine Sodium 75 MCG TAB PO SCH (05:07)
[2019-01-04] MEDS: Vancomycin HCl 1 GM in Sodium Chloride 0.9% 250 ML 250 ML IVPB SCH ×2 (05:07→18:08)
[2019-01-04] MEDS: Polyethylene Glycol 3350 17 GM Packet PO SCH (08:44)
[2019-01-04] MEDS: Furosemide 20 MG TAB PO SCH (08:45)
[2019-01-04] MEDS: busPIRone HCl 5 MG TAB PO SCH ×2 (08:45→20:09)
[2019-01-04] MEDS: metFORMIN 500 MG TAB PO SCH ×2 (08:45→18:08)
[2019-01-04] MEDS: Amlodipine 5 MG TAB PO SCH (08:45)
[2019-01-04] MEDS: Gemfibrozil 600 MG TAB PO SCH ×2 (08:45→18:08)
[2019-01-04] MEDS: Saccharomyces boulardii 250 MG CAP PO SCH (08:45)
[2019-01-04] MEDS: Pregabalin 75 MG CAP PO SCH ×2 (08:45→20:33)
[2019-01-04] MEDS: Zinc Sulfate 220 MG CAP PO SCH (08:45)
[2019-01-04] MEDS: Docusate 100 MG CAP PO SCH ×2 (08:47→20:18)
[2019-01-04] MEDS: HumaLOG 300 UNITS/3 ML VIAL SC PRN ×4 (08:47→21:02)
[2019-01-04] MEDS: Enoxaparin Sodium 40 MG/0.4 ML SYRINGE SC SCH (08:47)
[2019-01-04] MEDS: cefTRIAXone\\ROCEPHIN 2 GM in Sodium Chloride 0.9% 100 ML IVPB SCH (08:48)
[2019-01-04] MEDS: Lantus 1000 UNITS/10 ML VIAL SC SCH (08:48)
[2019-01-04] MEDS: levETIRAcetam 500 MG TAB PO SCH ×2 (08:51→20:11)
[2019-01-04] MEDS: COLESEVELAM HCL 3.75 GM PO SCH ×2 (08:51→20:17)
[2019-01-04] MEDS: Citalopram 20 MG TAB PO SCH (20:10)
[2019-01-05] MEDS: Levothyroxine Sodium 75 MCG TAB PO SCH (05:13)
[2019-01-05] MEDS: Vancomycin HCl 1 GM in Sodium Chloride 0.9% 250 ML 250 ML IVPB SCH ×2 (05:13→17:15)
[2019-01-05] MEDS: Saccharomyces boulardii 250 MG CAP PO SCH (09:30)
[2019-01-05] MEDS: cefTRIAXone\\ROCEPHIN 2 GM in Sodium Chloride 0.9% 100 ML IVPB SCH (09:30)
[2019-01-05] MEDS: busPIRone HCl 5 MG TAB PO SCH ×2 (09:30→20:29)
[2019-01-05] MEDS: HumaLOG 300 UNITS/3 ML VIAL SC PRN ×3 (09:30→20:36)
[2019-01-05] MEDS: Lantus 1000 UNITS/10 ML VIAL SC SCH (09:30)
[2019-01-05] MEDS: Gemfibrozil 600 MG TAB PO SCH ×2 (09:30→17:15)
[2019-01-05] MEDS: Zinc Sulfate 220 MG CAP PO SCH (09:30)
[2019-01-05] MEDS: metFORMIN 500 MG TAB PO SCH ×2 (09:30→17:15)
[2019-01-05] MEDS: Polyethylene Glycol 3350 17 GM Packet PO SCH (09:30)
[2019-01-05] MEDS: levETIRAcetam 500 MG TAB PO SCH ×2 (09:30→20:30)
[2019-01-05] MEDS: Amlodipine 5 MG TAB PO SCH (09:30)
[2019-01-05] MEDS: Enoxaparin Sodium 40 MG/0.4 ML SYRINGE SC SCH (09:30)
[2019-01-05] MEDS: Docusate 100 MG CAP PO SCH ×2 (09:30→20:30)
[2019-01-05] MEDS: Furosemide 20 MG TAB PO SCH (09:30)
[2019-01-05] MEDS: Pregabalin 75 MG CAP PO SCH ×2 (09:30→20:32)
[2019-01-05] MEDS: COLESEVELAM HCL 3.75 GM PO SCH ×2 (13:47→20:31)
[2019-01-05] MEDS: Citalopram 20 MG TAB PO SCH (20:29)
[2019-01-06] MEDS: Vancomycin HCl 1 GM in Sodium Chloride 0.9% 250 ML 250 ML IVPB SCH ×2 (04:52→17:19)
[2019-01-06] MEDS: Levothyroxine Sodium 75 MCG TAB PO SCH (05:09)
[2019-01-06] MEDS: Polyethylene Glycol 3350 17 GM Packet PO SCH (09:15)
[2019-01-06] MEDS: Enoxaparin Sodium 40 MG/0.4 ML SYRINGE SC SCH (09:15)
[2019-01-06] MEDS: levETIRAcetam 500 MG TAB PO SCH ×2 (09:16→20:46)
[2019-01-06] MEDS: Zinc Sulfate 220 MG CAP PO SCH (09:16)
[2019-01-06] MEDS: metFORMIN 500 MG TAB PO SCH ×2 (09:16→17:19)
[2019-01-06] MEDS: Saccharomyces boulardii 250 MG CAP PO SCH (09:16)
[2019-01-06] MEDS: Docusate 100 MG CAP PO SCH ×2 (09:17→20:46)
[2019-01-06] MEDS: Gemfibrozil 600 MG TAB PO SCH ×2 (09:17→17:19)
[2019-01-06] MEDS: busPIRone HCl 5 MG TAB PO SCH ×2 (09:17→20:45)
[2019-01-06] MEDS: Pregabalin 75 MG CAP PO SCH ×2 (09:18→20:46)
[2019-01-06] MEDS: Furosemide 20 MG TAB PO SCH (09:19)
[2019-01-06] MEDS: Lantus 1000 UNITS/10 ML VIAL SC SCH (09:20)
[2019-01-06] MEDS: Amlodipine 5 MG TAB PO SCH (09:20)
[2019-01-06] MEDS: HumaLOG 300 UNITS/3 ML VIAL SC PRN ×4 (09:21→21:23)
[2019-01-06] MEDS: COLESEVELAM HCL 3.75 GM PO SCH ×2 (09:21→20:47)
[2019-01-06] MEDS: cefTRIAXone\\ROCEPHIN 2 GM in Sodium Chloride 0.9% 100 ML IVPB SCH (11:02)
[2019-01-06] MEDS: Citalopram 20 MG TAB PO SCH (20:45)
[2019-01-07] MEDS: Vancomycin HCl 1 GM in Sodium Chloride 0.9% 250 ML 250 ML IVPB SCH ×2 (05:21→16:54)
[2019-01-07] MEDS: Levothyroxine Sodium 75 MCG TAB PO SCH (05:21)
[2019-01-07] MEDS: Enoxaparin Sodium 40 MG/0.4 ML SYRINGE SC SCH (08:19)
[2019-01-07] MEDS: Zinc Sulfate 220 MG CAP PO SCH (08:19)
[2019-01-07] MEDS: Pregabalin 75 MG CAP PO SCH ×2 (08:20→20:07)
[2019-01-07] MEDS: Saccharomyces boulardii 250 MG CAP PO SCH (08:23)
[2019-01-07] MEDS: busPIRone HCl 5 MG TAB PO SCH ×2 (08:23→20:01)
[2019-01-07] MEDS: levETIRAcetam 500 MG TAB PO SCH ×2 (08:23→20:02)
[2019-01-07] MEDS: Amlodipine 5 MG TAB PO SCH (08:24)
[2019-01-07] MEDS: Gemfibrozil 600 MG TAB PO SCH ×2 (08:24→16:54)
[2019-01-07] MEDS: metFORMIN 500 MG TAB PO SCH ×2 (08:24→16:54)
[2019-01-07] MEDS: Docusate 100 MG CAP PO SCH ×2 (08:25→20:01)
[2019-01-07] MEDS: HumaLOG 300 UNITS/3 ML VIAL SC PRN ×3 (08:25→17:04)
[2019-01-07] MEDS: Furosemide 20 MG TAB PO SCH (08:25)
[2019-01-07] MEDS: Lantus 1000 UNITS/10 ML VIAL SC SCH (08:25)
[2019-01-07] MEDS: COLESEVELAM HCL 3.75 GM PO SCH ×2 (08:27→20:06)
[2019-01-07] MEDS: Polyethylene Glycol 3350 17 GM Packet PO SCH (08:27)
[2019-01-07] MEDS: cefTRIAXone\\ROCEPHIN 2 GM in Sodium Chloride 0.9% 100 ML IVPB SCH (10:35)
[2019-01-07 16:37] LABS: Vancomycin, Trough 21.5 ug/mL
[2019-01-07] MEDS: Citalopram 20 MG TAB PO SCH (20:02)
[2019-01-08] MEDS: Levothyroxine Sodium 75 MCG TAB PO SCH (05:24)
[2019-01-08] MEDS: Vancomycin HCl 750 MG in Sodium Chloride 0.9% 250 ML 250 ML IVPB SCH ×2 (05:24→16:55)
[2019-01-08] MEDS: Zinc Sulfate 220 MG CAP PO SCH (07:50)
[2019-01-08] MEDS: Pregabalin 75 MG CAP PO SCH ×2 (07:50→20:26)
[2019-01-08] MEDS: Saccharomyces boulardii 250 MG CAP PO SCH (07:52)
[2019-01-08] MEDS: Gemfibrozil 600 MG TAB PO SCH ×2 (07:52→16:54)
[2019-01-08] MEDS: Amlodipine 5 MG TAB PO SCH (07:52)
[2019-01-08] MEDS: Furosemide 20 MG TAB PO SCH (07:52)
[2019-01-08] MEDS: metFORMIN 500 MG TAB PO SCH ×2 (07:53→16:54)
[2019-01-08] MEDS: Docusate 100 MG CAP PO SCH ×2 (07:53→20:25)
[2019-01-08] MEDS: COLESEVELAM HCL 3.75 GM PO SCH ×2 (07:53→20:45)
[2019-01-08] MEDS: Polyethylene Glycol 3350 17 GM Packet PO SCH (07:53)
[2019-01-08] MEDS: Enoxaparin Sodium 40 MG/0.4 ML SYRINGE SC SCH (07:54)
[2019-01-08] MEDS: busPIRone HCl 5 MG TAB PO SCH ×2 (07:54→20:25)
[2019-01-08] MEDS: levETIRAcetam 500 MG TAB PO SCH ×2 (07:54→20:26)
[2019-01-08] MEDS: Lantus 1000 UNITS/10 ML VIAL SC SCH (07:55)
[2019-01-08] MEDS: cefTRIAXone\\ROCEPHIN 2 GM in Sodium Chloride 0.9% 100 ML IVPB SCH (10:06)
[2019-01-08] MEDS: HumaLOG 300 UNITS/3 ML VIAL SC PRN ×3 (11:53→20:50)
[2019-01-08] MEDS: Citalopram 20 MG TAB PO SCH (20:26)
[2019-01-09] MEDS ORDERED: Vancomycin HCl 750 MG VIAL ONE (03:35)
[2019-01-09] MEDS: Vancomycin HCl 750 MG in Sodium Chloride 0.9% 250 ML 250 ML IVPB SCH ×2 (05:42→16:42)
[2019-01-09] MEDS: Levothyroxine Sodium 75 MCG TAB PO SCH (05:43)
[2019-01-09] MEDS: Gemfibrozil 600 MG TAB PO SCH ×2 (07:48→16:42)
[2019-01-09] MEDS: Amlodipine 5 MG TAB PO SCH (08:16)
[2019-01-09] MEDS: Zinc Sulfate 220 MG CAP PO SCH (08:16)
[2019-01-09] MEDS: Saccharomyces boulardii 250 MG CAP PO SCH (08:16)
[2019-01-09] MEDS: metFORMIN 500 MG TAB PO SCH ×2 (08:16→16:42)
[2019-01-09] MEDS: busPIRone HCl 5 MG TAB PO SCH ×2 (08:17→20:08)
[2019-01-09] MEDS: Pregabalin 75 MG CAP PO SCH ×2 (08:17→20:08)
[2019-01-09] MEDS: Furosemide 20 MG TAB PO SCH (08:17)
[2019-01-09] MEDS: levETIRAcetam 500 MG TAB PO SCH ×2 (08:18→20:08)
[2019-01-09] MEDS: Docusate 100 MG CAP PO SCH ×2 (08:18→20:13)
[2019-01-09] MEDS: Lantus 1000 UNITS/10 ML VIAL SC SCH (08:19)
[2019-01-09] MEDS: Enoxaparin Sodium 40 MG/0.4 ML SYRINGE SC SCH (08:20)
[2019-01-09] MEDS: Polyethylene Glycol 3350 17 GM Packet PO SCH (08:20)
[2019-01-09] MEDS: COLESEVELAM HCL 3.75 GM PO SCH ×2 (08:20→20:15)
[2019-01-09] MEDS: cefTRIAXone\\ROCEPHIN 2 GM in Sodium Chloride 0.9% 100 ML IVPB SCH (10:17)
[2019-01-09] MEDS: HumaLOG 300 UNITS/3 ML VIAL SC PRN ×3 (12:21→21:04)
[2019-01-09 16:19] LABS: Vancomycin, Trough 17.4 ug/mL
[2019-01-09] MEDS: Citalopram 20 MG TAB PO SCH (20:14)
[2019-01-10] MEDS: Vancomycin HCl 750 MG in Sodium Chloride 0.9% 250 ML 250 ML IVPB SCH ×2 (04:14→16:53)
[2019-01-10] MEDS: Levothyroxine Sodium 75 MCG TAB PO SCH (05:23)
[2019-01-10] MEDS: Gemfibrozil 600 MG TAB PO SCH ×2 (07:37→16:53)
[2019-01-10] MEDS: HumaLOG 300 UNITS/3 ML VIAL SC PRN ×3 (07:39→21:02)
[2019-01-10] MEDS: Lantus 1000 UNITS/10 ML VIAL SC SCH (08:10)
[2019-01-10] MEDS: Enoxaparin Sodium 40 MG/0.4 ML SYRINGE SC SCH (08:10)
[2019-01-10] MEDS: Polyethylene Glycol 3350 17 GM Packet PO SCH (08:13)
[2019-01-10] MEDS: Docusate 100 MG CAP PO SCH ×2 (08:14→21:01)
[2019-01-10] MEDS: busPIRone HCl 5 MG TAB PO SCH ×2 (08:14→21:01)
[2019-01-10] MEDS: levETIRAcetam 500 MG TAB PO SCH ×2 (08:14→20:59)
[2019-01-10] MEDS: Furosemide 20 MG TAB PO SCH (08:14)
[2019-01-10] MEDS: Saccharomyces boulardii 250 MG CAP PO SCH (08:14)
[2019-01-10] MEDS: Pregabalin 75 MG CAP PO SCH ×2 (08:16→20:58)
[2019-01-10] MEDS: Zinc Sulfate 220 MG CAP PO SCH (08:17)
[2019-01-10] MEDS: metFORMIN 500 MG TAB PO SCH ×2 (08:17→16:53)
[2019-01-10] MEDS: COLESEVELAM HCL 3.75 GM PO SCH ×2 (08:19→21:01)
[2019-01-10] MEDS: Amlodipine 5 MG TAB PO SCH (08:19)
[2019-01-10] MEDS: cefTRIAXone\\ROCEPHIN 2 GM in Sodium Chloride 0.9% 100 ML IVPB SCH (10:23)
[2019-01-10] MEDS: Citalopram 20 MG TAB PO SCH (20:58)
[2019-01-11] MEDS: Vancomycin HCl 750 MG in Sodium Chloride 0.9% 250 ML 250 ML IVPB SCH ×2 (05:23→17:11)
[2019-01-11] MEDS: Levothyroxine Sodium 75 MCG TAB PO SCH (05:23)
[2019-01-11] MEDS: busPIRone HCl 5 MG TAB PO SCH ×2 (08:30→20:23)
[2019-01-11] MEDS: Gemfibrozil 600 MG TAB PO SCH ×2 (08:31→17:09)
[2019-01-11] MEDS: metFORMIN 500 MG TAB PO SCH ×2 (08:31→17:10)
[2019-01-11] MEDS: Saccharomyces boulardii 250 MG CAP PO SCH (08:31)
[2019-01-11] MEDS: levETIRAcetam 500 MG TAB PO SCH ×2 (08:31→20:24)
[2019-01-11] MEDS: Zinc Sulfate 220 MG CAP PO SCH (08:31)
[2019-01-11] MEDS: Pregabalin 75 MG CAP PO SCH ×2 (08:32→20:26)
[2019-01-11] MEDS: Polyethylene Glycol 3350 17 GM Packet PO SCH (08:32)
[2019-01-11] MEDS: Amlodipine 5 MG TAB PO SCH (08:32)
[2019-01-11] MEDS: Furosemide 20 MG TAB PO SCH (08:32)
[2019-01-11] MEDS: Docusate 100 MG CAP PO SCH ×2 (08:32→20:24)
[2019-01-11] MEDS: COLESEVELAM HCL 3.75 GM PO SCH ×2 (08:32→20:24)
[2019-01-11] MEDS: Enoxaparin Sodium 40 MG/0.4 ML SYRINGE SC SCH (08:33)
[2019-01-11] MEDS: Lantus 1000 UNITS/10 ML VIAL SC SCH (08:36)
[2019-01-11] MEDS: HumaLOG 300 UNITS/3 ML VIAL SC PRN ×4 (08:36→21:36)
[2019-01-11] MEDS ORDERED: Sodium Chloride Irrig Solution 250 ML BOT ONE (09:52)
[2019-01-11] MEDS: cefTRIAXone\\ROCEPHIN 2 GM in Sodium Chloride 0.9% 100 ML IVPB SCH (10:40)
[2019-01-11] MEDS: Citalopram 20 MG TAB PO SCH (20:23)
[2019-01-12] MEDS: Vancomycin HCl 750 MG in Sodium Chloride 0.9% 250 ML 250 ML IVPB SCH ×2 (04:23→17:15)
[2019-01-12] MEDS: Levothyroxine Sodium 75 MCG TAB PO SCH (05:18)
[2019-01-12] MEDS: metFORMIN 500 MG TAB PO SCH ×2 (08:47→16:49)
[2019-01-12] MEDS: Docusate 100 MG CAP PO SCH ×2 (08:47→20:26)
[2019-01-12] MEDS: Zinc Sulfate 220 MG CAP PO SCH (08:47)
[2019-01-12] MEDS: Furosemide 20 MG TAB PO SCH (08:47)
[2019-01-12] MEDS: Polyethylene Glycol 3350 17 GM Packet PO SCH (08:47)
[2019-01-12] MEDS: Pregabalin 75 MG CAP PO SCH ×2 (08:47→20:28)
[2019-01-12] MEDS: Gemfibrozil 600 MG TAB PO SCH ×2 (08:47→16:49)
[2019-01-12] MEDS: HumaLOG 300 UNITS/3 ML VIAL SC PRN ×4 (08:48→21:43)
[2019-01-12] MEDS: Enoxaparin Sodium 40 MG/0.4 ML SYRINGE SC SCH (08:48)
[2019-01-12] MEDS: levETIRAcetam 500 MG TAB PO SCH ×2 (08:48→20:26)
[2019-01-12] MEDS: busPIRone HCl 5 MG TAB PO SCH ×2 (08:48→20:25)
[2019-01-12] MEDS: Amlodipine 5 MG TAB PO SCH (08:48)
[2019-01-12] MEDS: COLESEVELAM HCL 3.75 GM PO SCH ×2 (08:49→20:27)
[2019-01-12] MEDS: Lantus 1000 UNITS/10 ML VIAL SC SCH (08:49)
[2019-01-12] MEDS: cefTRIAXone\\ROCEPHIN 2 GM in Sodium Chloride 0.9% 100 ML IVPB SCH (08:50)
[2019-01-12] MEDS: Saccharomyces boulardii 250 MG CAP PO SCH (08:54)
[2019-01-12 16:05] LABS: #Basophils 0.1 thou/uL (0.0-0.2); #Eosinphils 0.4 thou/uL (0.0-0.7); #Lymphocytes 3.5 thou/uL (1.20-3.40); #Monocytes 0.6 thou/uL (0.11-0.59); #Neutrophils 2.8 thou/uL (1.40-6.50); %Basophils 0.7 % (0.0-1.0); %Eosinophils 5.2 % (0.0-10.0); %Lymphocytes 47.7 % (21.0-51.0); %Monocytes 8.2 % (0.0-10.0); %Neutrophils 38.2 % (42.0-75.0); Hemoglobin 10.5 g/dL (14.0-18.0); Mean Corpuscular HGB CONC 30.8 g/dL (32.0-36.0); Mean Corpuscular Volume 84.4 fL (78.0-98.0); Mean Platelet Volume 8.5 fL (7.4-10.4); Platelet Count 338 thou/uL (130-400); RBC Distribution Width 14.9 % (11.5-14.5); Red Blood Cell (RBC) Count 4.04 mill/uL (4.70-6.10); White Blood Cell (WBC) Count 7.4 thou/uL (4.8-10.8)
[2019-01-12 16:21] LABS: Anion Gap 15 mmol/L (10-20); BUN (Urea Nitrogen) 38 mg/dL (8.4-25.7); Calc. Creatinine Clearance 161 mL/min (70-130); Calcium 10.1 mg/dL (7.8-10.44); Carbon Dioxide 24 mmol/L (22-29); Chloride 103 mmol/L (98-107); Estimated GFR-MDRD Greater than 90; Glucose 228 mg/dL (70-105); Potassium 5.1 mmol/L (3.5-5.1); Sodium 137 mmol/L (136-145)
[2019-01-12 16:37] LABS: Vancomycin, Trough 14.1 ug/mL
[2019-01-12] MEDS: Citalopram 20 MG TAB PO SCH (20:25)
[2019-01-13] MEDS: Levothyroxine Sodium 75 MCG TAB PO SCH (05:13)
[2019-01-13] MEDS: Furosemide 20 MG TAB PO SCH (08:49)
[2019-01-13] MEDS: Lantus 1000 UNITS/10 ML VIAL SC SCH (08:49)
[2019-01-13] MEDS: Docusate 100 MG CAP PO SCH ×2 (08:49→20:50)
[2019-01-13] MEDS: Zinc Sulfate 220 MG CAP PO SCH (08:49)
[2019-01-13] MEDS: Enoxaparin Sodium 40 MG/0.4 ML SYRINGE SC SCH (08:49)
[2019-01-13] MEDS: Saccharomyces boulardii 250 MG CAP PO SCH (08:49)
[2019-01-13] MEDS: busPIRone HCl 5 MG TAB PO SCH ×2 (08:50→20:49)
[2019-01-13] MEDS: Amlodipine 5 MG TAB PO SCH (08:50)
[2019-01-13] MEDS: levETIRAcetam 500 MG TAB PO SCH ×2 (08:50→20:50)
[2019-01-13] MEDS: metFORMIN 500 MG TAB PO SCH ×2 (08:51→17:07)
[2019-01-13] MEDS: Pregabalin 75 MG CAP PO SCH ×2 (08:51→20:51)
[2019-01-13] MEDS: Polyethylene Glycol 3350 17 GM Packet PO SCH (08:52)
[2019-01-13] MEDS: Gemfibrozil 600 MG TAB PO SCH ×2 (08:52→17:07)
[2019-01-13] MEDS: COLESEVELAM HCL 3.75 GM PO SCH ×2 (08:52→20:53)
[2019-01-13] MEDS: HumaLOG 300 UNITS/3 ML VIAL SC PRN ×4 (08:53→21:15)
[2019-01-13] MEDS: Citalopram 20 MG TAB PO SCH (20:49)
[2019-01-14] MEDS: Levothyroxine Sodium 75 MCG TAB PO SCH (05:11)
[2019-01-14] MEDS: HumaLOG 300 UNITS/3 ML VIAL SC PRN ×4 (08:15→20:47)
[2019-01-14] MEDS: Polyethylene Glycol 3350 17 GM Packet PO SCH (09:03)
[2019-01-14] MEDS: Lantus 1000 UNITS/10 ML VIAL SC SCH (09:03)
[2019-01-14] MEDS: levETIRAcetam 500 MG TAB PO SCH ×2 (09:04→20:38)
[2019-01-14] MEDS: Saccharomyces boulardii 250 MG CAP PO SCH (09:04)
[2019-01-14] MEDS: Docusate 100 MG CAP PO SCH ×2 (09:05→20:43)
[2019-01-14] MEDS: Furosemide 20 MG TAB PO SCH (09:05)
[2019-01-14] MEDS: metFORMIN 500 MG TAB PO SCH ×2 (09:05→16:49)
[2019-01-14] MEDS: busPIRone HCl 5 MG TAB PO SCH ×2 (09:05→20:38)
[2019-01-14] MEDS: Zinc Sulfate 220 MG CAP PO SCH (09:06)
[2019-01-14] MEDS: Gemfibrozil 600 MG TAB PO SCH ×2 (09:06→16:49)
[2019-01-14] MEDS: Amlodipine 5 MG TAB PO SCH (09:07)
[2019-01-14] MEDS: Pregabalin 75 MG CAP PO SCH ×2 (09:07→20:39)
[2019-01-14] MEDS: Enoxaparin Sodium 40 MG/0.4 ML SYRINGE SC SCH (09:10)
[2019-01-14] MEDS: COLESEVELAM HCL 3.75 GM PO SCH ×2 (09:10→20:42)
[2019-01-14] MEDS: Citalopram 20 MG TAB PO SCH (20:38)
[2019-01-15] MEDS: Levothyroxine Sodium 75 MCG TAB PO SCH (05:45)
[2019-01-15] MEDS: Polyethylene Glycol 3350 17 GM Packet PO SCH (08:02)
[2019-01-15] MEDS: HumaLOG 300 UNITS/3 ML VIAL SC PRN ×4 (08:02→20:57)
[2019-01-15] MEDS: levETIRAcetam 500 MG TAB PO SCH ×2 (08:06→20:23)
[2019-01-15] MEDS: Pregabalin 75 MG CAP PO SCH ×2 (08:07→20:25)
[2019-01-15] MEDS: Amlodipine 5 MG TAB PO SCH (08:09)
[2019-01-15] MEDS: busPIRone HCl 5 MG TAB PO SCH ×2 (08:09→20:23)
[2019-01-15] MEDS: metFORMIN 500 MG TAB PO SCH ×2 (08:10→16:43)
[2019-01-15] MEDS: Enoxaparin Sodium 40 MG/0.4 ML SYRINGE SC SCH (08:10)
[2019-01-15] MEDS: Furosemide 20 MG TAB PO SCH (08:10)
[2019-01-15] MEDS: Gemfibrozil 600 MG TAB PO SCH ×2 (08:10→16:43)
[2019-01-15] MEDS: Docusate 100 MG CAP PO SCH ×2 (08:10→20:23)
[2019-01-15] MEDS: COLESEVELAM HCL 3.75 GM PO SCH ×2 (08:11→20:24)
[2019-01-15] MEDS: Lantus 1000 UNITS/10 ML VIAL SC SCH (08:11)
[2019-01-15] MEDS: Saccharomyces boulardii 250 MG CAP PO SCH (08:12)
[2019-01-15] MEDS: Zinc Sulfate 220 MG CAP PO SCH (08:12)
--- NOTE | 2019-01-15 16:32 | CT ---
CT THORAX NONCONTRAST: DATE: 01/15/19 HISTORY: 58-year-old male with osteomyelitis of the right 10th rib. COMPARISON: 11/25/18. FINDINGS: There are extensive, bulky bridging osteophytes protruding into the prevertebral space in the lower c ervical spine down to the upper thoracic spine. There are smaller such anterior bridging osteophytes throughout the mid and lower thoracic spine. This is consistent with DISH. This is relevant for the f inding of an obliquely oriented, mildly displaced fracture of the T6 vertebral body. There is a small focal minimal depression of the central portion of the superior end plate, but otherwise no overall loss of height. The fracture involves the anterior and middle columns of the vertebral body, but does not involve the pedicles or other posterior elements, and therefore this is not a Chance fracture. A ll of the thoracic vertebral body heights are maintained. There is no bony retropulsion into the spin al canal. The previously mentioned osteitis involving the posterior aspect of the right 10th rib is again noted . The periostitis associated with this at its dorsal aspect is more prominent now. The soft tissue de nsity material broadly abutting the posterior surface of the right 10th rib is again noted, which cou ld be cellulitis or phlegmeon. The adjacent cutaneous defect just posterior to this is now smaller, a nd the defect currently no longer reaches the posterior osseous cortical surface of that rib. Pain pump catheter is again noted at the dorsal aspect of the spinal canal, ascending up to the T10 l evel. Again noted is the very large number of tiny calcific densities involving the posterior aspects of the bilateral lower lobes. (The sagittal reconstructions demonstrate that the ones on the right a re mostly within the pulmonary parenchyma, while most of the ones on the left are at the pleural surf miguel.) There is no consolidation or large suspicious pulmonary mass. Cardiomegaly. Small pericardial effusio n. Extensive atherosclerotic calcification of LAD and LCX, and ramus intermedius. No aneurysm of thor acic aorta. No pleural effusion or pneumothorax. No mediastinal lymphadenopathy. IMPRESSION: 1. Mildly displaced, probably subacute, fracture of the T6 vertebral body. 2. DISH (diffuse idiopathic skeletal hyperostosis), which has allowed the conditions for such a frac ture. 3. Osteitis and probable osteomyelitis involving the posterior aspect of the right 10th rib. The as sociated sclerosis and periostitis is currently greater than on 11/25/18, although the overlying cuta neous ulcer has decreased in size. 4. Bilateral lower lobe innumerable tiny calcifications in the pulmonary parenchyma and pleural surf miguel. Unchanged and chronic. 5. Cardiomegaly and small pericardial effusion. 6. Significant coronary atherosclerotic disease JN R POS: [facility]
[2019-01-15] MEDS: cefTRIAXone\\ROCEPHIN 2 GM in Sodium Chloride 0.9% 100 ML IVPB SCH (18:04)
[2019-01-15] MEDS: Vancomycin HCl 750 MG in Sodium Chloride 0.9% 250 ML 250 ML IVPB SCH (20:22)
[2019-01-15] MEDS: Citalopram 20 MG TAB PO SCH (20:23)
[2019-01-16] MEDS: Levothyroxine Sodium 75 MCG TAB PO SCH (05:20)
[2019-01-16] MEDS: Vancomycin HCl 750 MG in Sodium Chloride 0.9% 250 ML 250 ML IVPB SCH ×2 (07:45→19:19)
[2019-01-16] MEDS: Enoxaparin Sodium 40 MG/0.4 ML SYRINGE SC SCH (08:01)
[2019-01-16] MEDS: Polyethylene Glycol 3350 17 GM Packet PO SCH (08:01)
[2019-01-16] MEDS: Saccharomyces boulardii 250 MG CAP PO SCH (08:02)
[2019-01-16] MEDS: COLESEVELAM HCL 3.75 GM PO SCH ×2 (08:02→20:48)
[2019-01-16] MEDS: metFORMIN 500 MG TAB PO SCH ×2 (08:02→17:34)
[2019-01-16] MEDS: Zinc Sulfate 220 MG CAP PO SCH (08:02)
[2019-01-16] MEDS: Amlodipine 5 MG TAB PO SCH (08:02)
[2019-01-16] MEDS: Furosemide 20 MG TAB PO SCH (08:02)
[2019-01-16] MEDS: busPIRone HCl 5 MG TAB PO SCH ×2 (08:02→20:46)
[2019-01-16] MEDS: Docusate 100 MG CAP PO SCH ×2 (08:02→20:46)
[2019-01-16] MEDS: levETIRAcetam 500 MG TAB PO SCH ×2 (08:03→20:46)
[2019-01-16] MEDS: Pregabalin 75 MG CAP PO SCH ×2 (08:03→20:49)
[2019-01-16] MEDS: Gemfibrozil 600 MG TAB PO SCH ×2 (08:03→17:34)
[2019-01-16] MEDS: HumaLOG 300 UNITS/3 ML VIAL SC PRN ×4 (08:07→21:22)
[2019-01-16] MEDS: Lantus 1000 UNITS/10 ML VIAL SC SCH (08:53)
[2019-01-16] MEDS ORDERED: Insulin Glargine 35 UNITS in Pre-Filled Syringe 1 EACH SC SCH (09:00)
[2019-01-16] MEDS: cefTRIAXone\\ROCEPHIN 2 GM in Sodium Chloride 0.9% 100 ML IVPB SCH (17:36)
[2019-01-16] MEDS: Citalopram 20 MG TAB PO SCH (20:59)
[2019-01-17] MEDS: Levothyroxine Sodium 75 MCG TAB PO SCH (05:21)
[2019-01-17 06:17] LABS: Vancomycin, Trough 12.5 ug/mL
[2019-01-17] MEDS: Vancomycin HCl 750 MG in Sodium Chloride 0.9% 250 ML 250 ML IVPB SCH (06:34)
[2019-01-17 08:21] VITALS: BP 124/74; TEMP 97.6
[2019-01-17] MEDS: metFORMIN 500 MG TAB PO SCH (08:58)
[2019-01-17] MEDS: Polyethylene Glycol 3350 17 GM Packet PO SCH (08:58)
[2019-01-17] MEDS: Enoxaparin Sodium 40 MG/0.4 ML SYRINGE SC SCH (08:58)
[2019-01-17] MEDS: levETIRAcetam 500 MG TAB PO SCH (08:59)
[2019-01-17] MEDS: Gemfibrozil 600 MG TAB PO SCH (09:00)
[2019-01-17] MEDS: busPIRone HCl 5 MG TAB PO SCH (09:00)
[2019-01-17] MEDS: Saccharomyces boulardii 250 MG CAP PO SCH (09:00)
[2019-01-17] MEDS: Amlodipine 5 MG TAB PO SCH (09:00)
[2019-01-17] MEDS: Furosemide 20 MG TAB PO SCH (09:00)
[2019-01-17] MEDS: Docusate 100 MG CAP PO SCH (09:00)
[2019-01-17] MEDS: Zinc Sulfate 220 MG CAP PO SCH (09:01)
[2019-01-17] MEDS: Pregabalin 75 MG CAP PO SCH (09:01)
[2019-01-17] MEDS: COLESEVELAM HCL 3.75 GM PO SCH (09:03)
[2019-01-17] MEDS: Lantus 1000 UNITS/10 ML VIAL SC SCH (09:10)
[2019-01-17 11:20] LABS: Anion Gap 15 mmol/L (10-20); BUN (Urea Nitrogen) 37 mg/dL (8.4-25.7); Calc. Creatinine Clearance 165 mL/min (70-130); Calcium 10.1 mg/dL (7.8-10.44); Carbon Dioxide 29 mmol/L (22-29); Chloride 102 mmol/L (98-107); Estimated GFR-MDRD Greater than 90; Glucose 135 mg/dL (70-105); Potassium 4.7 mmol/L (3.5-5.1); Sodium 141 mmol/L (136-145)
[2019-01-17 17:42] LABS: CRP (Inflammatory) 2.19 mg/dL (= or < 0.5)
[2019-01-17] MEDS ORDERED: Vancomycin HCl 1 GM in Sodium Chloride 0.9% 250 ML 250 ML IVPB SCH (19:00)
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
== END 2019-01-17 12:05 | DRG 539 ==
LOC: MADMS 13:59 → UNDOADMIN 13:59 → MADMS 15:50
PROVIDERS: ADMIT Family Medicine; ATTEND Family Medicine
DX: M86.8X8 Other osteomyelitis, other site (principal); L89.154 Pressure ulcer of sacral region, stage 4; L89.613 Pressure ulcer of right heel, stage 3; G82.50 Quadriplegia, unspecified; E66.9 Obesity, unspecified; G47.33 Obstructive sleep apnea (adult) (pediatric); E11.9 Type 2 diabetes mellitus without complications; N31.9 Neuromuscular dysfunction of bladder, unspecified; Z66 Do not resuscitate; Z74.01 Bed confinement status; K21.9 Gastro-esophageal reflux disease without esophagitis; G40.909 Epilepsy, unspecified, not intractable, without status epilepticus; I10 Essential (primary) hypertension; J92.0 Pleural plaque with presence of asbestos; F41.9 Anxiety disorder, unspecified; I73.9 Peripheral vascular disease, unspecified; E78.5 Hyperlipidemia, unspecified; B95.62 Methicillin resistant Staphylococcus aureus infection as the cause of diseases classified elsewhere; F31.9 Bipolar disorder, unspecified; Z90.49 Acquired absence of other specified parts of digestive tract; Z90.89 Acquired absence of other organs; Z79.899 Other long term (current) drug therapy; D64.9 Anemia, unspecified; Z79.4 Long term (current) use of insulin; Z89.429 Acquired absence of other toe(s), unspecified side; E03.9 Hypothyroidism, unspecified; E11.65 Type 2 diabetes mellitus with hyperglycemia; Z93.50 Unspecified cystostomy status; G89.4 Chronic pain syndrome; Z68.30 Body mass index [BMI] 30.0-30.9, adult; Z87.891 Personal history of nicotine dependence; Z88.5 Allergy status to narcotic agent; Z88.8 Allergy status to other drugs, medicaments and biological substances; Z87.440 Personal history of urinary (tract) infections; Z93.0 Tracheostomy status
CPT/HCPCS: 36415; 36416; 71250; 80048; 80202; 82565; 85025; 85610; 85730; 86140; 87081; 97602; A4216; J0696; J1650; J1815; J2997; J3370; J7050; Q0163